=== PATIENT | female | born 1985 | race American Indian/Alaskan Native ===

== ENCOUNTER 2020-03-02 12:42 | Emergency (ER) | payer MEDICAID ==
--- NOTE | 2020-03-02 12:52 | Event Note ---
ED Screening Note ED Screening Note: 35 y/o female with PMH of constipation and bowel obstruction secondary to previous surgical history (colon resection and c section) c/o of no BM x 5 days and few episodes of nausea and vomiting. This initial assessment/diagnostic orders/clinical plan/treatment(s) is/are subject to change based on patients health status, clinical progression and re- assessment by fellow clinical providers in the ED. Further treatment and workup at subsequent clinical providers discretion. Patient/guardian urged not to elope from the ED as their condition may be serious if not clinically assessed and managed. Initial orders include:
--- NOTE | 2020-03-02 14:38 | XRay Report ---
Abdominal series with frontal chest, 3) INDICATION / CLINICAL INFORMATION: constipation abd pain. COMPARISON: None available. FINDINGS: TUBES / LINES: None. BOWEL GAS PATTERN: No significant abnormality. FREE AIR / EXTRALUMINAL GAS: None seen. Chest: No significant additional findings. IMPRESSION: 1. No significant abnormality. Signer Name: J Luis Larson MD Signed: 03/02/2020 2:34 PM Workstation Name: [id number]
[2020-03-02 15:04] LABS: Basophils # (Auto) 0.2 K/mm3 (0.0-0.1); Basophils % (Auto) 2.6 % (0.0-1.8); Eosinophils # (Auto) 0.3 K/mm3 (0.0-0.4); Eosinophils % (Auto) 4.8 % (0.0-4.3); Hematocrit 38.8 % (30.3-42.9); Hemoglobin 12.5 gm/dl (10.1-14.3); Lymphocytes # (Auto) 1.4 K/mm3 (1.2-5.4); Lymphocytes % (Auto) 21.2 % (13.4-35.0); Mean Corpuscular HGB Conc 32 % (30-34); Mean Corpuscular Volume 90 fl (79-97); Monocytes # (Auto) 0.3 K/mm3 (0.0-0.8); Platelet Count 217 K/mm3 (140-440); Red Cell Distribution Width 16.2 % (13.2-15.2)
[2020-03-02 15:06] LABS: Alanine Aminotransferase 16 units/L (7-56); BUN/Creatinine Ratio 10; Blood Urea Nitrogen 7 mg/dL (7-17); Calcium 9.1 mg/dL (8.4-10.2); Hemolysis Index 7
[2020-03-02] MEDS ORDERED: SODIUM CHLORIDE 0.9% 1000 ML 1,000 ML IV ONE ×2 (17:46→19:15)
[2020-03-02] MEDS ORDERED: ONDANSETRON 4 MG/2 ML INJ IV ONE (17:46)
--- NOTE | 2020-03-02 17:50 | Emergency Department Report ---
HPI - General Chief Complaint: Abdominal Pain Time Seen by Provider: 03/02/20 17:37 - HPI HPI: Room 3 The patient is a 35-year-old female present with a chief complaint of abdominal pain. The patient states for the past 3 days she has had a constant lower abdominal pain described as a pressure associated with nausea and vomiting. Patient states she has not had a bowel movement in 5 days when she normally has 1 daily. Patient denies history of fever, vaginal discharge dysuria or hematuria. ED Past Medical Hx - Past Medical History Previous Medical History?: Yes Hx Asthma: Yes Additional medical history: SVT - Surgical History Past Surgical History?: Yes Additional Surgical History: left ovary removed. hysterectomy. bowel obstruction (2019) - Family History Family history: no significant - Social History Smoking Status: Former Smoker (None since December) Substance Use Type: None (Denies illicit drug use) - Medications Home Medications: Home Medications Medication Instructions Recorded Confirmed Last Taken Type Docusate Sodium [Colace] 100 mg PO BID PRN #30 capsule 03/03/20 Unknown Rx HYDROcodone/APAP 5-325 [[place] 1 - 2 each PO Q6HR PRN #14 tablet 03/03/20 Unknown Rx 5/325] Lactulose [Cephulac] 20 gm PO QDAY PRN #90 ml 03/03/20 Unknown Rx ED Review of Systems ROS: Stated complaint: ABD PAIN Other details as noted in HPI Constitutional: denies: fever Eyes: denies: eye pain ENT: denies: throat pain Respiratory: no symptoms reported Cardiovascular: denies: chest pain Endocrine: no symptoms reported Gastrointestinal: abdominal pain, nausea, vomiting, constipation Genitourinary: denies: dysuria Neurological: denies: headache Physical Exam - Physical Exam Vital Signs: Vital Signs 03/02/20 12:47 Temperature 98.0 F Pulse Rate 114 H Respiratory 16 Rate Blood Pressure 128/77 O2 Sat by Pulse 99 Oximetry Physical Exam: GENERAL: The patient is well-developed well-nourished female lying on stretcher not appearing to be in acute distress. [] HEENT: Normocephalic. Atraumatic. Extraocular motions are intact. Patient has moist mucous membranes. NECK: Supple. Trachea midline CHEST/LUNGS: Clear to auscultation. There is no respiratory distress noted. HEART/CARDIOVASCULAR: Regular. There is no tachycardia. There is no gallop rub or murmur. ABDOMEN: Abdomen is soft, with tenderness to palpation of the lower abdomen greatest in the suprapubic region. Patient has normal bowel sounds. There is no abdominal distention. SKIN: There is no rash. There is no edema. There is no diaphoresis. NEURO: The patient is awake, alert, and oriented. The patient is cooperative. The patient has normal speech MUSCULOSKELETAL: There is left CVA tenderness. There is no evidence of acute injury. ED Course Vital Signs 03/02/20 12:47 Temperature 98.0 F Pulse Rate 114 H Respiratory 16 Rate Blood Pressure 128/77 O2 Sat by Pulse 99 Oximetry ED Medical Decision Making - Lab Data Result diagrams: 03/02/20 14:31 03/02/20 14:31 Laboratory Tests 03/02/20 03/02/20 03/02/20 14:31 14:31 18:40 WBC 6.4 RBC 4.30 Hgb 12.5 Hct 38.8 MCV 90 MCH 29 MCHC 32 RDW 16.2 H Plt Count 217 Lymph % (Auto) 21.2 [place] % (Auto) 5.0 Eos % (Auto) 4.8 H Baso % (Auto) 2.6 H Lymph # 1.4 [place] # 0.3 Eos # 0.3 Baso # 0.2 H Seg Neutrophils % 66.4 Seg Neutrophils # 4.3 Sodium 140 Potassium 4.0 Chloride 102.3 Carbon Dioxide 26 Anion Gap 16 BUN 7 Creatinine 0.7 Estimated GFR > 60 BUN/Creatinine Ratio 10 Glucose 97 Calcium 9.1 Total Bilirubin 0.30 AST 17 ALT 16 Alkaline Phosphatase 58 Total Protein 7.2 Albumin 4.0 Albumin/Globulin Ratio 1.3 Urine Color Yellow Urine Turbidity Clear Urine pH 7.0 Ur Specific [place] 1.015 Urine Protein <15 mg/dl Urine Glucose (UA) Neg Urine Ketones Neg Urine Blood Neg Urine Nitrite Neg Urine Bilirubin Neg Urine Urobilinogen < 2.0 Ur Leukocyte Esterase Neg Urine WBC (Auto) 1.0 Urine RBC (Auto) 1.0 U Epithel Cells (Auto) 1.0 Urine Mucus Few Urine HCG, Qual Negative - EKG Data -: EKG Interpreted by Mn EKG shows normal: sinus rhythm Rate: tachycardia (155 bpm) - EKG Data When compared to previous EKG there are: previous EKG unavailable Interpretation: nonspecific ST-T wave belem (T wave inversion lead III) - Radiology Data Radiology results: report reviewed (2 view abdominal x-ray, CT abdomen pelvis), image reviewed (2 view abdominal x-ray, CT abdomen pelvis) interpreted by me: 2 view abdominal [id number]-bsienjeghgh bowel gas pattern. No free air Findings [address] [address] XRay Report Signed Patient: LYLE HUBER MR#: [id number] : 1985 Acct:[id number] Age/Sex: 35 / F ADM Date: 03/02/20 Loc: ED Attending Dr: Ordering Physician: MARIE BENNETT Date of Service: 03/02/20 Procedure(s): XR abd series w cxr 1V Accession Number(s): [id number] cc: MARIE BENNETT Fluoro Time In Minutes: Abdominal series with frontal chest, 3) INDICATION / CLINICAL INFORMATION: constipation abd pain. COMPARISON: None available. FINDINGS: TUBES / LINES: None. BOWEL GAS PATTERN: No significant abnormality. FREE AIR / EXTRALUMINAL GAS: None seen. Chest: No significant additional findings. IMPRESSION: 1. No significant abnormality. Signer Name: J Luis Larson MD Signed: 03/02/2020 2:34 PM Workstation Name: [id number] Transcribed By: BC Dictated By: J Luis Larson MD Electronically Authenticated By: J Luis Larson MD Signed Date/Time: 03/02/201433 DD/ 1433 TD/TT: [address] [address] Cat Scan Report Signed Patient: LYLE HUBER MR#: [id number] : 1985 Acct:[id number] Age/Sex: 35 / F ADM Date: 03/02/20 Loc: ED Attending Dr: Ordering Physician: ESPERANZA FORMAN MD Date of Service: 03/02/20 Procedure(s): CT abdomen pelvis w con Accession Number(s): [id number] cc: ESPERANZA FORMAN MD CT abdomen pelvis w con INDICATION / CLINICAL INFORMATION: Left lower abdominal pain TECHNIQUE: Routine CT of the abdomen and pelvis with IV contrast All CT scans at this location are performed using CT dose reduction for ALARA by means of automated exposure control. COMPARISON: None available. FINDINGS: Abdomen and pelvis: There is a large cystic mass arising from the left ovary. The cystic portion measures about 13 x 8 x 4 cm there is a solid enhancing portion of the mass that measures approximately 2.5 cm in diameter. The right ovary also contains a mildly complex cyst measuring 5.4 cm in diameter. No definite uterus is appreciated The liver, spleen, pancreas adrenal glands and kidneys are unremarkable. The gallbladder is contracted. There is evidence of partial bowel resection. Urinary bladder is only partially fluid distended. Shotty inguinal nodes are present. There are several borderline enlarged nodes along the obturator and distal left external iliac jace chain although none appear to be pathologically enlarged. IMPRESSION: Complex cystic mass arising from the left ovary, as outlined above. The enhancing portion of this mass is suspicious for underlying ovarian neoplasm. There are several borderline enlarged nodes identified within the obturator and external iliac jace chain. Signer Name: J Luis Larson MD Signed: 03/02/2020 7:39 PM Workstation Name: [id number] Transcribed By: Dictated By: J Luis Larson MD Electronically Authenticated By: J Luis Larson MD Signed Date/Time: 03/02/201938 DD/ 34 TD/TT: - Medical Decision Making Imaging results discussed with the patient. Importance of prompt follow-up given concern for underlying malignancy was explained and patient verbalized understanding. - Differential Diagnosis Small bowel obstruction, constipation, UTI, pyelonephritis Critical care attestation.: If time is entered above; I have spent that time in minutes in the direct care of this critically ill patient, excluding procedure time. ED Disposition Clinical Impression: Mass of left ovary Disposition: - TO HOME OR SELFCARE Is pt being admited?: No Does the pt Need Aspirin: No Condition: Stable Instructions: Abdominal Pain (ED) Additional Instructions: Return to the emergency department should you develop worsening symptoms, inability to tolerate food or liquids, high fever or any other concerns Prescriptions: Lactulose [Cephulac] 20 gm PO QDAY PRN #90 ml PRN Reason: Constipation Docusate Sodium [Colace] 100 mg PO BID PRN #30 capsule PRN Reason: Constipation HYDROcodone/APAP 5-325 [[place] 5/325] 1 - 2 each PO Q6HR PRN #14 tablet PRN Reason: Pain Referrals: [facility] MD CARLITOS [Primary Care Provider] - 3-5 Days [facility] [Provider Group] - JESSICA (Please follow-up with a gy necologist at [facility] for further evaluation of your left ovarian cystic mass) Time of Disposition: 00:18
[2020-03-02 18:55] LABS: Bilirubin,Urine NEG (Negative); Blood,Urine NEG (Negative); Color,Urine Yellow (Yellow); Mucus,Urine FEW /HPF; Protein,Urine <15 mg/dL mg/dL (Negative); Urobilinogen,Urine < 2.0 mg/dL (<2.0)
[2020-03-02 18:59] LABS: HCG Qualitative,Urine Negative (Negative)
--- NOTE | 2020-03-02 19:43 | Cat Scan Report ---
CT abdomen pelvis w con INDICATION / CLINICAL INFORMATION: Left lower abdominal pain TECHNIQUE: Routine CT of the abdomen and pelvis with IV contrast All CT scans at this location are performed usi ng CT dose reduction for ALARA by means of automated exposure control. COMPARISON: None available. FINDINGS: Abdomen and pelvis: There is a large cystic mass arising from the left ovary. The cystic portion bruce ures about 13 x 8 x 4 cm there is a solid enhancing portion of the mass that measures approximately 2 .5 cm in diameter. The right ovary also contains a mildly complex cyst measuring 5.4 cm in diameter. No definite uterus is appreciated The liver, spleen, pancreas adrenal glands and kidneys are unremarkable. The gallbladder is contracte d. There is evidence of partial bowel resection. Urinary bladder is only partially fluid distended. S hotty inguinal nodes are present. There are several borderline enlarged nodes along the obturator and distal left external iliac jace chain although none appear to be pathologically enlarged. IMPRESSION: Complex cystic mass arising from the left ovary, as outlined above. The enhancing portion of this mas s is suspicious for underlying ovarian neoplasm. There are several borderline enlarged nodes identifi ed within the obturator and external iliac jace chain. Signer Name: J Luis Larson MD Signed: 03/02/2020 7:39 PM Workstation Name: [id number]
[2020-03-02] MEDS ORDERED: KETOROLAC 30 MG/1 ML INJ IV ONE (20:24)
[2020-03-02] MEDS ORDERED: LACTULOSE 20 GM/30 ML ORAL LIQD PO ONE (21:48)
[2020-03-02] MEDS ORDERED: diphenhydrAMINE 50 MG/ML VIAL IV ONE (21:48)
--- NOTE | 2020-03-02 23:44 | Ultrasound Report ---
US pelvis duplex doppler comp INDICATION / CLINICAL INFORMATION: Lower abdominal pain. Abnormal CT. COMPARISON: CT earlier the same day FINDINGS: There has been prior hysterectomy and right oophorectomy. There is a very large cystic lesion appears to arise from the left ovary. This measures approximately 12.3 x 6.2 x 6.6 cm. There are a few internal septations within this. No abnormal flow is seen withi n this. No free fluid. IMPRESSION: 1. Large left ovarian cystic lesion, measurements as above. There are a few internal echoes. No vascu larity is seen. Gynecologic follow-up is recommended, given the size of this lesion. 2. Prior hysterectomy and right oophorectomy. Signer Name: Jorge L Castle MD Signed: 03/02/2020 11:40 PM Workstation Name: [id number]
[2020-03-03 01:35] VITALS: BP 123/78
== END 2020-03-03 02:08 | disposition home or self-care (01) ==
LOC: ED 12:42
DX: N83.9 Noninflammatory disorder of ovary, fallopian tube and broad ligament, unspecified (principal); R11.2 Nausea with vomiting, unspecified; J45.909 Unspecified asthma, uncomplicated; Z87.891 Personal history of nicotine dependence; Z98.890 Other specified postprocedural states; Z90.710 Acquired absence of both cervix and uterus; Z79.899 Other long term (current) drug therapy; Z88.0 Allergy status to penicillin
CPT/HCPCS: 36415; 74022; 74177; 80053; 81001; 81025; 85025; 93975; 96361; 96374; 96375; 99285; J1200; J1885; J2405; J7030; Q9967; 93005

== ENCOUNTER 2020-11-09 23:44 | Emergency (ER) | payer MEDICAID ==
--- NOTE | 2020-11-10 01:42 | Event Note ---
ED Screening Note Date of service: 11/10/20 Time: 01:41 ED Screening Note: Patient complains of sudden onset of left lower abdominal pain x 5 hours ago History of multiple abdominal surgeries and bowel obstructions Patient has had a hysterectomy, still has left ovary CT 02/23 showed possible neoplasm + Nausea and vomiting This initial assessment/diagnostic orders/clinical plan/treatment(s) is/are subject to change based on patients health status, clinical progression and re- assessment by fellow clinical providers in the ED. Further treatment and workup at subsequent clinical providers discretion. Patient/guardian urged not to elope from the ED as their condition may be serious if not clinically assessed and managed. Initial orders include: Labs CT
[2020-11-10 01:54] LABS: Basophils # (Auto) 0.1 K/mm3 (0.0-0.1); Basophils % (Auto) 1.5 % (0.0-1.8); Eosinophils # (Auto) 0.1 K/mm3 (0.0-0.4); Eosinophils % (Auto) 1.1 % (0.0-4.3); Hematocrit 33.6 % (30.3-42.9); Hemoglobin 10.7 gm/dl (10.1-14.3); Lymphocytes # (Auto) 1.8 K/mm3 (1.2-5.4); Lymphocytes % (Auto) 24.8 % (13.4-35.0); Mean Corpuscular HGB Conc 32 % (30-34); Mean Corpuscular Volume 81 fl (79-97); Monocytes # (Auto) 0.4 K/mm3 (0.0-0.8); Monocytes % (Auto) 5.8 % (0.0-7.3); Platelet Count 371 K/mm3 (140-440); Red Blood Count 4.14 M/mm3 (3.65-5.03); Red Cell Distribution Width 17.6 % (13.2-15.2)
[2020-11-10 02:12] LABS: Alanine Aminotransferase 11 units/L (7-56); Albumin 4.2 g/dL (3.9-5); Blood Urea Nitrogen 8 mg/dL (7-17); Calcium 8.9 mg/dL (8.4-10.2); Hemolysis Index 1
[2020-11-10 02:17] LABS: BUN/Creatinine Ratio 11
[2020-11-10] MEDS ORDERED: SODIUM CHLORIDE 0.9% 1000 ML 1,000 ML IV ONE (02:52)
[2020-11-10] MEDS ORDERED: HYDROmorphone 1 MG/1 ML INJ IV ONE ×2 (02:52→04:28)
[2020-11-10] MEDS ORDERED: ONDANSETRON 4 MG/2 ML INJ IV ONE (02:52)
--- NOTE | 2020-11-10 03:02 | Emergency Department Report ---
ED Abdominal Pain HPI - General Chief Complaint: Abdominal Pain Stated Complaint: ABD PAIN PUI?: No Time Seen by Provider: 11/10/20 01:40 Source: patient Mode of arrival: Stretcher Limitations: No Limitations - History of Present Illness Initial Comments: CC: Lower abdominal pain HPI: THis is a 32 yo female with hx of SVT, anemia, bronchitis, hystectomy, ascites, bowel obstruction and ovarian mass who presents with severe 10/10 LLQ pain. Sharp pain which began yesterday. More severe today. She is followed at [facility]. She has received paracentesis at least 5 times. MD Complaint: abdominal pain -: Gradual, days(s) (1) Location: LLQ Radiation: none Severity: severe Severity scale (0 -10): 10 Quality: sharp Consistency: constant Improves With: nothing Worsens With: movement, other (Palpation) Context: other (Complicated history including ascites, bowel obstruction, ovarian mass) Associated Symptoms: denies other symptoms - Related Data Previous Rx's Medication Instructions Recorded Last Taken Type Docusate Sodium [Colace] 100 mg PO BID PRN #30 capsule 03/03/20 Unknown Rx HYDROcodone/APAP 5-325 [[place] 1 - 2 each PO Q6HR PRN #14 tablet 03/03/20 Unknown Rx 5/325] Lactulose [Cephulac] 20 gm PO QDAY PRN #90 ml 03/03/20 Unknown Rx HYDROcodone/APAP 5-325 [[place] 1 each PO Q6HR PRN #15 tablet 11/10/20 Unknown Rx 5/325] Ibuprofen [Motrin 400 MG tab] 400 mg PO QID 4 Days #16 tablet 11/10/20 Unknown Rx Allergies Allergy/AdvReac Type Severity Reaction Status Date / Time Penicillins Allergy Hives Verified 03/02/20 12:47 ED Review of Systems ROS: Stated complaint: ABD PAIN Other details as noted in HPI Comment: All other systems reviewed and negative Constitutional: denies: fever, malaise Respiratory: denies: cough, shortness of breath Cardiovascular: denies: chest pain Gastrointestinal: abdominal pain ED Past Medical Hx - Past Medical History Previous Medical History?: Yes Hx Asthma: Yes Additional medical history: SVT, anemia, left ovarian mass - Surgical History Past Surgical History?: Yes Additional Surgical History: right ovary removed. hysterectomy. bowel obstruction (2019) - Family History Family history: cancer, diabetes - Social History Smoking Status: Never Smoker Substance Use Type: None - Medications Home Medications: Home Medications Medication Instructions Recorded Confirmed Last Taken Type Docusate Sodium [Colace] 100 mg PO BID PRN #30 capsule 03/03/20 Unknown Rx HYDROcodone/APAP 5-325 [[place] 1 - 2 each PO Q6HR PRN #14 tablet 03/03/20 Unknown Rx 5/325] Lactulose [Cephulac] 20 gm PO QDAY PRN #90 ml 03/03/20 Unknown Rx HYDROcodone/APAP 5-325 [[place] 1 each PO Q6HR PRN #15 tablet 11/10/20 Unknown Rx 5/325] Ibuprofen [Motrin 400 MG tab] 400 mg PO QID 4 Days #16 tablet 11/10/20 Unknown Rx ED Physical Exam - General Limitations: No Limitations General appearance: alert, in no apparent distress, anxious, other (Nontoxic, tearful, in obvious pain) - Head Head exam: Present: atraumatic, normocephalic - Eye Eye exam: Present: normal appearance - ENT ENT exam: Present: mucous membranes moist - Neck Neck exam: Present: normal inspection, full ROM - Respiratory Respiratory exam: Present: normal lung sounds bilaterally. Absent: respiratory distress, wheezes, rales, rhonchi, stridor - Cardiovascular Cardiovascular Exam: Present: regular rate, normal rhythm, normal heart sounds. Absent: systolic murmur, diastolic murmur, rubs, gallop - GI/Abdominal GI/Abdominal exam: Present: soft, tenderness, guarding, normal bowel sounds. Absent: distended, rebound - Extremities Exam Extremities exam: Present: normal inspection - Neurological Exam Neurological exam: Present: alert, oriented X3 - Psychiatric Psychiatric exam: Present: normal affect, anxious - Skin Skin exam: Present: warm, dry, intact, normal color. Absent: rash ED Course Vital Signs 11/10/20 01:25 Temperature 98.6 F Pulse Rate 98 H Respiratory 17 Rate Blood Pressure 130/80 O2 Sat by Pulse 99 Oximetry ED Medical Decision Making - Lab Data Result diagrams: 11/10/20 01:33 11/10/20 01:33 - Radiology Data Radiology results: report reviewed, image reviewed CT abdomen pelvis w con INDICATION: acute LLQ pain. TECHNIQUE: All CT scans at this location are performed using the following dose modulation technique: Automated exposure control. CONTRAST: Omnipaque 300, 100 cc IV injection. COMPARISON: CT abdomen and pelvis 03/02/2020. CT ABDOMEN: Evaluation the parenchymal organs demonstrates benign-appearing cysts at the hepatic dome. The remaining parenchymal organs are unremarkable. Negative for abdominal mass, fluid or inflammation. The bowel is not obstructed or thickened. Postsurgical change is seen at small bowel activity midabdomen. CT PELVIS: The left ovary contains multiple cysts with the largest measuring 3.5 cm. The appearance is significantly improved from the previous exam. Status post previous hysterectomy. A small amount of pelvic free fluid is noted. IMPRESSION: 1. Interval improvement in the appearance of the left ovary. Mul tiple cysts remain. 2. Small amount of pelvic free fluid. PELVIC ULTRASOUND HISTORY: Pelvic mass. COMPARISON: CT abdomen and pelvis performed earlier the same day. FINDINGS: Imaging was performed by transabdominally and endovaginally. Both the right and left adnexal were evaluated. Negative for mass or fluid collection. No ovaries identified. IMPRESSION: 1. Previous hysterectomy. 2. Ovaries not visualized. - Medical Decision Making Clinical impression: Ruptured ovarian cyst patient has multiple cystic lesion on ovary with small pelvic free fluid. Initially concern for ovarian torsion however patient's pain greatly subsided after pain medication. Patient will be discharged follow-up with her primary physicians at [facility]. She also was provided referral to [facility] on-call. Patient was provided prescription for ibuprofen and [place]. CT abdomen pelvis was indicated due to severe pain. Cystic lesions seen on ovary otherwise no acute inflammatory or obstructive process. Pelvic ultrasound did not reveal adnexal mass. Critical care attestation.: If time is entered above; I have spent that time in minutes in the direct care of this critically ill patient, excluding procedure time. ED Disposition Clinical Impression: Ruptured cyst of left ovary, Acute abdominal pain in left lower quadrant Disposition: DC-01 TO HOME OR SELFCARE Is pt being admited?: No Does the pt Need Aspirin: No Condition: Stable Instructions: Abdominal Pain (ED), Ovarian Cyst, [id number], Pelvic Mass, Female Prescriptions: Ibuprofen [Motrin 400 MG tab] 400 mg PO QID 4 Days #16 tablet HYDROcodone/APAP 5-325 [[place] 5/325] 1 each PO Q6HR PRN #15 tablet PRN Reason: Pain Referrals: [facility] [Provider Group] - 3-5 Days
[2020-11-10 03:20] LABS: Bilirubin,Urine NEG (Negative); Blood,Urine NEG (Negative); Color,Urine Yellow (Yellow); Mucus,Urine FEW /HPF; Protein,Urine <15 mg/dL mg/dL (Negative); WBC,Urine < 1.0 /HPF (0.0-6.0)
--- NOTE | 2020-11-10 03:59 | Cat Scan Report ---
CT abdomen pelvis w con INDICATION: acute LLQ pain. TECHNIQUE: All CT scans at this location are performed using the following dose modulation technique: Automated exposure control. CONTRAST: Omnipaque 300, 100 cc IV injection. COMPARISON: CT abdomen and pelvis 03/02/2020. CT ABDOMEN: Evaluation the parenchymal organs demonstrates benign-appearing cysts at the hepatic dome . The remaining parenchymal organs are unremarkable. Negative for abdominal mass, fluid or inflammati on. The bowel is not obstructed or thickened. Postsurgical change is seen at small bowel activity mid abdomen. CT PELVIS: The left ovary contains multiple cysts with the largest measuring 3.5 cm. The appearance i s significantly improved from the previous exam. Status post previous hysterectomy. A small amount of pelvic free fluid is noted. IMPRESSION: 1. Interval improvement in the appearance of the left ovary. Multiple cysts remain. 2. Small amount of pelvic free fluid. Signer Name: Charlie Martínez MD Signed: 11/10/2020 3:54 AM Workstation Name: [id number]
--- NOTE | 2020-11-10 04:50 | Ultrasound Report ---
PELVIC ULTRASOUND HISTORY: Pelvic mass. COMPARISON: CT abdomen and pelvis performed earlier the same day. FINDINGS: Imaging was performed by transabdominally and endovaginally. Both the right and left adnexa l were evaluated. Negative for mass or fluid collection. No ovaries identified. IMPRESSION: 1. Previous hysterectomy. 2. Ovaries not visualized. Signer Name: Charlie Martínez MD Signed: 11/10/2020 4:46 AM Workstation Name: [id number]
[2020-11-10] MEDS ORDERED: KETOROLAC 30 MG/1 ML INJ IV ONE (04:51)
[2020-11-10 06:05] VITALS: BP 127/68
== END 2020-11-10 05:45 | disposition home or self-care (01) ==
LOC: ED 23:44
DX: N83.292 Other ovarian cyst, left side (principal); R10.32 Left lower quadrant pain; J45.909 Unspecified asthma, uncomplicated; Z98.890 Other specified postprocedural states; Z79.1 Long term (current) use of non-steroidal anti-inflammatories (NSAID); Z79.899 Other long term (current) drug therapy; Z88.8 Allergy status to other drugs, medicaments and biological substances
CPT/HCPCS: 36415; 74177; 76856; 80053; 81001; 83690; 85025; 93975; 96361; 96374; 96375; 96376; 99284; J1170; J1885; J2405; J7030; Q9967

== ENCOUNTER 2021-04-02 22:40 | Inpatient (IN) | payer MEDICAID ==
[2021-04-02] MEDS ORDERED: ASPIRIN 325 MG TAB PO ONE (22:48)
[2021-04-02] MEDS ORDERED: MORPHINE 2 MG/1 ML INJ IV ONE (23:10)
[2021-04-02] MEDS ORDERED: dilTIAZem 25 MG/5 ML INJ IV ONE (23:10)
[2021-04-02] MEDS ORDERED: SODIUM CHLORIDE 0.9% 1000 ML 1,000 ML IV ONE (23:10)
[2021-04-02] MEDS ORDERED: ONDANSETRON 4 MG/2 ML INJ IV ONE (23:10)
--- NOTE | 2021-04-02 23:11 | Emergency Department Report ---
ED Chest Pain HPI - General Chief Complaint: Chest Pain Stated Complaint: ABD PAIN/CHEST PAIN/EMESIS PUI?: No Time Seen by Provider: 04/02/21 22:55 Source: patient Mode of arrival: Ambulatory Limitations: No Limitations - History of Present Illness Initial Comments: Patient is a 36-year-old female who presents emergency room with complaints of substernal chest pain. Patient states the chest pain has been radiating to her arms. Patient states that her chest pain started 2 days ago. Patient also complains of left lower quadrant abdominal pain. Patient states her abdominal pain started 3 days ago. Patient dates her abdominal pain is worsening. Patient states her abdominal pain is a 10 out of 10. Patient also complains of nausea. Patient denies vomiting. Patient denies fever and chills. Patient states her abdominal pain is better with rest and worse with palpation and movement. Patient denies recent travel. Patient denies recent international travel. Patient denies exposure to the novel coronavirus. Patient denies sick contacts. Patient denies fever and chills. Patient denies cough. Patient denies diarrhea. Patient denies coming in contact with anybody with symptoms of the novel coronavirus. MD Complaint: chest pain -: Sudden Onset: during rest Pain Location: substernal Pain Radiation: RUE, LUE Severity: severe Severity scale (0 -10): 10 Quality: sharp Consistency: constant Improves With: rest Worsens With: exertion, movement re: nausea, diaphoresis, dyspnea. denies: vomting, sense of impending doom Other Symptoms: palpitations. denies: cough, fever, syncope, rash, acid taste in mouth, leg swelling, burping Treatments Prior to Arrival: none Aspirin use within the Past 7 Days: (0) No - Related Data On Oral Contraceptives: No Previous Rx's Medication Instructions Recorded Last Taken Type Docusate Sodium [Colace] 100 mg PO BID PRN #30 capsule 03/03/20 Unknown Rx HYDROcodone/APAP 5-325 [[place] 1 - 2 each PO Q6HR PRN #14 tablet 03/03/20 Unknown Rx 5/325] Lactulose [Cephulac] 20 gm PO QDAY PRN #90 ml 03/03/20 Unknown Rx HYDROcodone/APAP 5-325 [[place] 1 each PO Q6HR PRN #15 tablet 11/10/20 Unknown Rx 5/325] Ibuprofen [Motrin 400 MG tab] 400 mg PO QID 4 Days #16 tablet 11/10/20 Unknown Rx Allergies Allergy/AdvReac Type Severity Reaction Status Date / Time Penicillins Allergy Hives Verified 03/02/20 12:47 Heart Score - HEART Score History: Moderately suspicious EKG: Non-specific Age: < 45 Risk factors: 1-2 risk factors Troponin: < normal limit HEART Score: 3 - EKG Read Time Time EKG Completed: 22:48 EKG Read Time: 22:52 ED Review of Systems ROS: Stated complaint: ABD PAIN/CHEST PAIN/EMESIS Other details as noted in HPI Constitutional: denies: chills, fever Eyes: denies: eye pain, eye discharge, vision change ENT: denies: ear pain, throat pain Respiratory: shortness of breath. denies: cough, wheezing Cardiovascular: chest pain. denies: palpitations Endocrine: no symptoms reported Gastrointestinal: abdominal pain. denies: nausea, diarrhea Genitourinary: denies: urgency, dysuria, discharge Musculoskeletal: denies: back pain, joint swelling, arthralgia Skin: denies: rash, lesions Neurological: denies: headache, weakness, paresthesias Psychiatric: denies: anxiety, depression Hematological/Lymphatic: denies: easy bleeding, easy bruising ED Past Medical Hx - Past Medical History Previous Medical History?: Yes Hx Asthma: Yes Additional medical history: SVT, anemia, left ovarian mass - Surgical History Past Surgical History?: Yes Additional Surgical History: right ovary removed. hysterectomy. bowel obstruction (2019) - Social History Smoking Status: Never Smoker Substance Use Type: None - Medications Home Medications: Home Medications Medication Instructions Recorded Confirmed Last Taken Type Docusate Sodium [Colace] 100 mg PO BID PRN #30 capsule 03/03/20 Unknown Rx HYDROcodone/APAP 5-325 [[place] 1 - 2 each PO Q6HR PRN #14 tablet 03/03/20 Unknown Rx 5/325] Lactulose [Cephulac] 20 gm PO QDAY PRN #90 ml 03/03/20 Unknown Rx HYDROcodone/APAP 5-325 [[place] 1 each PO Q6HR PRN #15 tablet 11/10/20 Unknown Rx 5/325] Ibuprofen [Motrin 400 MG tab] 400 mg PO QID 4 Days #16 tablet 11/10/20 Unknown Rx ED Physical Exam - General Limitations: No Limitations General appearance: alert, in no apparent distress - Head Head exam: Present: atraumatic, normocephalic - Eye Eye exam: Present: normal appearance - ENT ENT exam: Present: mucous membranes moist - Neck Neck exam: Present: normal inspection - Respiratory Respiratory exam: Present: normal lung sounds bilaterally. Absent: respiratory distress - Cardiovascular Cardiovascular Exam: Present: regular rate, normal rhythm. Absent: systolic murmur, diastolic murmur, rubs, gallop - GI/Abdominal GI/Abdominal exam: Present: soft, tenderness (Left lower quadrant tenderness to palpation.), normal bowel sounds - Extremities Exam Extremities exam: Present: normal inspection - Back Exam Back exam: Present: normal inspection - Neurological Exam Neurological exam: Present: alert, oriented X3 - Psychiatric Psychiatric exam: Present: normal affect, normal mood - Skin Skin exam: Present: warm, dry, intact, normal color. Absent: rash ED Course Vital Signs 04/02/21 04/02/21 22:45 23:24 Temperature 98.2 F Pulse Rate 162 H 169 H Respiratory 19 Rate Blood Pressure 126/84 [Left] O2 Sat by Pulse 100 Oximetry - Reevaluation(s) Reevaluation #1: Initial valuation done. Patient found to be in a tachycardic rhythm at 160-170. 04/02/21 23:09 Reevaluation #2: Patient received Cardizem and she immediately converted. Patient's heart rate dropped to 105. Patient states her chest pain improved. Patient states her shortness of breath improved. Patient's blood pressure is stable. 04/02/21 23:40 Reevaluation #3: Patient's heart rates still below 105. Patient showing a sinus tach on the monitor. Patient blood pressure stable. Patient is complaining of increased abdominal pain. Patient was given 1 mg Dilaudid. Patient still on IV fluids. 04/03/21 01:01 Reevaluation #4: I discussed all results with patient. I discussed plan of care with patient. Patient agrees with plan of care and admission. Patient to be admitted to the hospitalist service. 04/03/21 01:44 - Consultations Consultation #1: Hospitalist consulted for admission. Hospitalist to admit patient. 04/03/21 01:44 ED Medical Decision Making - Lab Data Result diagrams: 04/02/21 22:59 04/02/21 22:59 - EKG Data -: EKG Interpreted by Me EKG shows normal: sinus rhythm, axis, intervals, QRS complexes, ST-T waves Rate: tachycardia - Radiology Data Radiology results: report reviewed, image reviewed interpreted by me: Chest x-ray: No pneumonia, no pneumothorax, no foreign body, no osseous findings, no acute findings CHEST 1 VIEW 04/02/2021 10:32 PM INDICATION / CLINICAL INFORMATION: Retrosternal chest pain radiating to right arm for 2 days. Abdominal pain with nausea. COMPARISON: None available. FINDINGS: SUPPORT DEVICES: None. HEART / MEDIASTINUM: No significant abnormality. LUNGS / PLEURA: No significant pulmonary abnormality. No significant pleural effusion. No pneumothorax. ADDITIONAL FINDINGS: No significant additional findings. IMPRESSION: 1. No acute abnormality of the chest. CT ABDOMEN AND PELVIS WITH CONTRAST INDICATION / CLINICAL INFORMATION: Unspecified abdominal pain. TECHNIQUE: Axial CT images were obtained through the abdomen and pelvis after 100 cc Omnipaque [address] scans at this location are performed using CT dose reduction for DyMyndRA by means of automated exposure control. COMPARISON: CT abdomen and pelvis with contrast from 11/10/2020 FINDINGS: LOWER CHEST: No significant abnormality. LIVER: Unchanged hepatic dome cyst measuring 1.4 cm. No other significant abnormality. GALLBLADDER: No significant abnormality. BILE DUCTS: No significant abnormality. PANCREAS: No significant abnormality. SPLEEN: No significant abnormality. ADRENALS: No significant abnormality. RIGHT KIDNEY / URETER: No significant abnormality. LEFT KIDNEY / URETER: No significant abnormality. STOMACH / SMALL BOWEL: No significant abnormality. COLON: No significant abnormality. APPENDIX: No significant abnormality. PERITONEUM: No free fluid. No free air. No fluid collection. LYMPH NODES: No significant adenopathy. AORTA / ARTERIES: No significant abnormality. IVC / VEINS: No significant abnormality. URINARY BLADDER: No significant abnormality. REPRODUCTIVE ORGANS: Prior hysterectomy. Multiple left ovarian cysts are again seen measuring up to 4.2 cm, previously 3.5 cm. No other significant abnormality. ADDITIONAL FINDINGS: None. SKELETAL SYSTEM: No significant abnormality. IMPRESSION: 1. No acute findings. 2. Left ovarian cysts as above. - Medical Decision Making Patient is a 36-year-old female that presents emergency room with complaints of chest pain shortness of breath and abdominal pain. Patient abdominal pain left lower quadrant. Patient also complains of palpitations. Patient found to be in SVT. Patient was given Cardizem and immediately converted. Patient was then placed on a Cardizem drip at a low dose in order to stabilize heart rate. Patient stated her chest pain shortness of breath improved with the Cardizem. Patient given morphine for her chest pain and her abdominal pain. Patient had a chest x-ray which was negative for acute findings. Patient's labs were essentially unremarkable. Patient had a repeat EKG after converting. Patient's EKG shows a sinus tach. No ST segment changes. I personally reviewed the EKG and chest x-ray. Patient had a CT scan of the abdomen which was negative for acute findings. Critical care time documented due to the multiple reassessments, prolonged time at the bedside, interpretation of diagnostics and labs. - Differential Diagnosis Chest pain, SVT, shortness of breath, ACS, abdominal pain, diverticulitis Critical Care Time: Yes Critical care time in (mins) excluding proc time.: 35 Critical care attestation.: If time is entered above; I have spent that time in minutes in the direct care of this critically ill patient, excluding procedure time. Critical Care Time: 35 minutes ED Disposition Clinical Impression: Shortness of breath, SVT (supraventricular tachycardia), Left ovarian cyst Chest pain Qualifiers: Chest pain type: unspecified Qualified Code(s): R07.9 - Chest pain, unspecified Abdominal pain Qualifiers: Abdominal location: left lower quadrant Qualified Code(s): R10.32 - Left lower quadrant pain Disposition: OP ADMIT IP TO THIS HOSP Is pt being admited?: Yes Does the pt Need Aspirin: No Condition: Critical Time of Disposition: 01:29
--- NOTE | 2021-04-02 23:39 | XRay Report ---
CHEST 1 VIEW 04/02/2021 10:32 PM INDICATION / CLINICAL INFORMATION: Retrosternal chest pain radiating to right arm for 2 days. Abdominal pain with nausea. COMPARISON: None available. FINDINGS: SUPPORT DEVICES: None. HEART / MEDIASTINUM: No significant abnormality. LUNGS / PLEURA: No significant pulmonary abnormality. No significant pleural effusion. No pneumothora x. ADDITIONAL FINDINGS: No significant additional findings. IMPRESSION: 1. No acute abnormality of the chest. Signer Name: Rj Lezama MD Signed: 04/02/2021 11:34 PM Workstation Name: [id number]
[2021-04-02 23:45] LABS: Alanine Aminotransferase 20 units/L (7-56); Albumin 4.4 g/dL (3.9-5); BUN/Creatinine Ratio 13; Blood Urea Nitrogen 8 mg/dL (7-17); Calcium 9.2 mg/dL (8.4-10.2); Hemolysis Index 7
[2021-04-02] MEDS ORDERED: dilTIAZem/D5W 100 MG/100 ML BAG IV SCH (23:45)
[2021-04-02 23:47] LABS: Basophils # (Auto) 0.1 K/mm3 (0.0-0.1); Eosinophils # (Auto) 0.2 K/mm3 (0.0-0.4); Eosinophils % (Auto) 2.6 % (0.0-4.3); Hematocrit 34.7 % (30.3-42.9); Lymphocytes # (Auto) 3.6 K/mm3 (1.2-5.4); Lymphocytes % (Auto) 38.4 % (13.4-35.0); Mean Corpuscular HGB Conc 32 % (30-34); Mean Corpuscular Volume 82 fl (79-97); Monocytes # (Auto) 0.8 K/mm3 (0.0-0.8); Platelet Count 344 K/mm3 (140-440); Red Blood Count 4.25 M/mm3 (3.65-5.03); Red Cell Distribution Width 19.4 % (13.2-15.2)
[2021-04-02 23:48] LABS: Basophils % (Auto) 1.5 % (0.0-1.8)
[2021-04-03] MEDS ORDERED: HYDROmorphone 1 MG/1 ML INJ IV ONE (01:16)
--- NOTE | 2021-04-03 01:26 | Cat Scan Report ---
CT ABDOMEN AND PELVIS WITH CONTRAST INDICATION / CLINICAL INFORMATION: Unspecified abdominal pain. TECHNIQUE: Axial CT images were obtained through the abdomen and pelvis after 100 cc Omnipaque [address] scans at this location are performed using CT dose reduction for ALARA by means of automated exposure control. COMPARISON: CT abdomen and pelvis with contrast from 11/10/2020 FINDINGS: LOWER CHEST: No significant abnormality. LIVER: Unchanged hepatic dome cyst measuring 1.4 cm. No other significant abnormality. GALLBLADDER: No significant abnormality. BILE DUCTS: No significant abnormality. PANCREAS: No significant abnormality. SPLEEN: No significant abnormality. ADRENALS: No significant abnormality. RIGHT KIDNEY / URETER: No significant abnormality. LEFT KIDNEY / URETER: No significant abnormality. STOMACH / SMALL BOWEL: No significant abnormality. COLON: No significant abnormality. APPENDIX: No significant abnormality. PERITONEUM: No free fluid. No free air. No fluid collection. LYMPH NODES: No significant adenopathy. AORTA / ARTERIES: No significant abnormality. IVC / VEINS: No significant abnormality. URINARY BLADDER: No significant abnormality. REPRODUCTIVE ORGANS: Prior hysterectomy. Multiple left ovarian cysts are again seen measuring up to 4 .2 cm, previously 3.5 cm. No other significant abnormality. ADDITIONAL FINDINGS: None. SKELETAL SYSTEM: No significant abnormality. IMPRESSION: 1. No acute findings. 2. Left ovarian cysts as above. Signer Name: Rj Lezama MD Signed: 04/03/2021 1:22 AM Workstation Name: [id number]
[2021-04-03] MEDS ORDERED: NITROGLYCERIN 0.4 MG TAB SUBL SL PRN (02:00)
[2021-04-03] MEDS ORDERED: SODIUM CHLORIDE 0.9% 1000 ML 1,000 ML IV SCH (02:00)
[2021-04-03] MEDS ORDERED: ACETAMINOPHEN 325 MG TAB PO PRN (02:00)
[2021-04-03] MEDS ORDERED: MORPHINE 2 MG/1 ML INJ IV PRN (02:00)
[2021-04-03] MEDS ORDERED: traMADol 50 MG TAB PO PRN (02:00)
[2021-04-03] MEDS ORDERED: DOCUSATE SODIUM 100 MG CAP PO PRN (02:02)
[2021-04-03] MEDS ORDERED: LACTULOSE 20 GM/30 ML ORAL LIQD PO PRN (02:02)
--- NOTE | 2021-04-03 02:07 | History and Physical Report ---
History of Present Illness Date of examination: 04/03/21 Date of admission: 04/03/21 01:30 Chief complaint: Chest pain abdominal pain History of present illness: 36-year-old female with past medical history of asthma, SVT, anemia, left ovarian mass was brought to the emergency room because of substernal chest pain which is sharp, constant 10/10 radiating to the both arms for 2 days . Patient also complains of left lower quadrant abdominal pain. Patient states her abdominal pain started 3 days ago. Patient dates her abdominal pain is worsening. Patient states her abdominal pain is a 10 out of 10. Patient also complains of nausea. Patient denies vomiting. Patient denies fever and chills. Patient states her abdominal pain is better with rest and worse with palpation and movement. In the emergency room patient is found to have SVT subsequently patient was put on Cardizem drip. Past History Past Medical History: anemia, other (Asthma SVT left ovarian mass) Medications and Allergies Allergies Allergy/AdvReac Type Severity Reaction Status Date / Time Penicillins Allergy Hives Verified 03/02/20 12:47 Home Medications Medication Instructions Recorded Confirmed Last Taken Type Docusate Sodium [Colace] 100 mg PO BID PRN #30 capsule 03/03/20 Unknown Rx HYDROcodone/APAP 5-325 [[place] 1 - 2 each PO Q6HR PRN #14 tablet 03/03/20 Unknown Rx 5/325] Lactulose [Cephulac] 20 gm PO QDAY PRN #90 ml 03/03/20 Unknown Rx HYDROcodone/APAP 5-325 [[place] 1 each PO Q6HR PRN #15 tablet 11/10/20 Unknown Rx 5/325] Ibuprofen [Motrin 400 MG tab] 400 mg PO QID 4 Days #16 tablet 11/10/20 Unknown Rx Active Meds: Active Medications Diltiazem HCl (Cardizem/D5w 100mg/100ml) 100 mg in 100 mls @ 5 mls/hr IV TITR JUAN PABLO; Protocol Last Admin: 04/02/21 23:24 Dose: 5 mg/hr, 5 mls/hr Documented by: Review of Systems Cardiovascular: chest pain, shortness of breath Respiratory: shortness of breath Gastrointestinal: nausea Exam - Constitutional Vitals: Temp Pulse Resp BP Pulse Ox 98.2 F 169 H 19 126/84 100 04/02/21 22:45 04/02/21 23:24 04/02/21 22:45 04/02/21 22:45 04/02/21 22:45 General appearance: Present: no acute distress, well-nourished - EENT Eyes: Present: PERRL ENT: hearing intact, clear oral mucosa - Neck Neck: Present: supple, normal ROM - Respiratory Respiratory effort: normal Respiratory: bilateral: CTA - Cardiovascular Heart Sounds: Present: S1 & S2. Absent: rub, click - Extremities Extremities: pulses symmetrical, No edema Peripheral Pulses: within normal limits - Abdominal General gastrointestinal: Present: soft, non-tender, non-distended, normal bowel sounds Female genitourinary: Present: normal - Integumentary Integumentary: Present: clear, warm, dry - Musculoskeletal Musculoskeletal: gait normal, strength equal bilaterally - Psychiatric Psychiatric: appropriate mood/affect, intact judgment & insight - Neurologic Neurologic: CNII-XII intact, moves all extremities HEART Score - HEART Score EKG: Non-specific Age: < 45 Risk factors: 1-2 risk factors Troponin: Troponin T < 0.010 ng/mL (0.00-0.029) 04/02/21 22:59 Troponin: < normal limit Results - Labs CBC & Chem 7: 04/02/21 22:59 04/02/21 22:59 Labs: Laboratory Last Values WBC 9.4 K/mm3 (4.5-11.0) 04/02/21 22:59 RBC 4.25 M/mm3 (3.65-5.03) 04/02/21 22:59 Hgb 11.0 gm/dl (10.1-14.3) 04/02/21 22:59 Hct 34.7 % (30.3-42.9) 04/02/21 22:59 MCV 82 fl (79-97) 04/02/21 22:59 MCH 26 pg (28-32) L 04/02/21 22:59 MCHC 32 % (30-34) 04/02/21 22:59 RDW 19.4 % (13.2-15.2) H 04/02/21 22:59 Plt Count 344 K/mm3 (140-440) 04/02/21 22:59 Lymph % (Auto) 38.4 % (13.4-35.0) H 04/02/21 22:59 [place] % (Auto) 9.0 % (0.0-7.3) H 04/02/21 22:59 Eos % (Auto) 2.6 % (0.0-4.3) 04/02/21 22:59 Baso % (Auto) 1.5 % (0.0-1.8) 04/02/21 22:59 Lymph # (Auto) 3.6 K/mm3 (1.2-5.4) 04/02/21 22:59 [place] # (Auto) 0.8 K/mm3 (0.0-0.8) 04/02/21 22:59 Eos # (Auto) 0.2 K/mm3 (0.0-0.4) 04/02/21 22:59 Baso # (Auto) 0.1 K/mm3 (0.0-0.1) 04/02/21 22:59 Seg Neutrophils % 48.5 % (40.0-70.0) 04/02/21 22:59 Seg Neutrophils # 4.6 K/mm3 (1.8-7.7) 04/02/21 22:59 Sodium 136 mmol/L (137-145) L 04/02/21 22:59 Potassium 3.4 mmol/L (3.6-5.0) L 04/02/21 22:59 Chloride 101.1 mmol/L (98-107) 04/02/21 22:59 Carbon Dioxide 21 mmol/L (22-30) L 04/02/21 22:59 Anion Gap 17 mmol/L 04/02/21 22:59 BUN 8 mg/dL (7-17) 04/02/21 22:59 Creatinine 0.6 mg/dL (0.6-1.2) 04/02/21 22:59 Estimated GFR > 60 ml/min 04/02/21 22:59 BUN/Creatinine Ratio 13 % 04/02/21 22:59 Glucose 78 mg/dL (65-100) 04/02/21 22:59 Calcium 9.2 mg/dL (8.4-10.2) 04/02/21 22:59 Total Bilirubin 0.20 mg/dL (0.1-1.2) 04/02/21 22:59 AST 20 units/L (5-40) 07/28/21 22:59 ALT 20 units/L (7-56) 04/02/21 22:59 Alkaline Phosphatase 65 units/L (35-129) 04/02/21 22:59 Troponin T < 0.010 ng/mL (0.00-0.029) 04/02/21 22:59 Total Protein 8.2 g/dL (6.3-8.2) 04/02/21 22:59 Albumin 4.4 g/dL (3.9-5) 04/02/21 22:59 Albumin/Globulin Ratio 1.2 % 04/02/21 22:59 - Imaging and Cardiology Chest x-ray: report reviewed CT scan - abdomen: report reviewed Assessment and Plan VTE prophylaxis?: Chemical Plan of care discussed with patient/family: Yes - Patient Problems (1) Acute coronary syndrome Current Visit: Yes Status: Acute Plan to address problem: Admit the patient to the medical ICU. Aspirin 325 mg p.o. daily. Lipitor 40 mg p.o. daily. Nitroglycerin as needed. We do the serial cardiac enzyme. We also do echocardiogram and consult cardiology for further evaluation and treatment (2) SVT (supraventricular tachycardia) Current Visit: Yes Status: Acute Plan to address problem: Cardizem drip as per protocol.Aspirin 325 mg p.o. daily. Lipitor 40 mg p.o. daily. Nitroglycerin as needed. We do the serial cardiac enzyme. We also do echocardiogram and consult cardiology for further evaluation and treatment (3) Asthma Current Visit: Yes Status: Acute Plan to address problem: Oxygen by nasal cannula 3 L/min. DuoNeb by nebulizer every 4 hours. Albuterol via nebulizer every 4 hours as needed (4) Left ovarian cyst Current Visit: Yes Status: Acute Plan to address problem: Outpatient follow-up with [facility]. We will monitor the patient closely (5) DVT prophylaxis Current Visit: Yes Status: Acute Plan to address problem: Heparin 5000 units subcu every 8 hours for DVT prophylaxis. Protonix 40 mg p.o. daily for GI prophylaxis. Patient is a full code
[2021-04-03 05:14] LABS: Basophils # (Auto) 0.1 K/mm3 (0.0-0.1); Basophils % (Auto) 1.1 % (0.0-1.8); Eosinophils # (Auto) 0.3 K/mm3 (0.0-0.4); Eosinophils % (Auto) 2.9 % (0.0-4.3); Hematocrit 30.8 % (30.3-42.9); Hemoglobin 10.3 gm/dl (10.1-14.3); Lymphocytes # (Auto) 3.4 K/mm3 (1.2-5.4); Mean Corpuscular HGB Conc 33 % (30-34); Mean Corpuscular Volume 80 fl (79-97); Monocytes # (Auto) 0.7 K/mm3 (0.0-0.8); Monocytes % (Auto) 7.5 % (0.0-7.3); Platelet Count 336 K/mm3 (140-440); Red Blood Count 3.83 M/mm3 (3.65-5.03); Red Cell Distribution Width 19.8 % (13.2-15.2)
[2021-04-03 05:23] LABS: Blood Urea Nitrogen 9 mg/dL (7-17); Calcium 8.5 mg/dL (8.4-10.2); Hemolysis Index 1
[2021-04-03 05:25] LABS: BUN/Creatinine Ratio 13
[2021-04-03] MEDS: HEPARIN 5,000 UNIT/1 ML VIAL SUB-Q SCH ×2 (08:16→13:58)
[2021-04-03] MEDS ORDERED: IBUPROFEN 400 MG TAB PO PRN (10:00)
[2021-04-03] MEDS ORDERED: PANTOPRAZOLE 40 MG TAB PO SCH (10:00)
[2021-04-03 10:05] LABS: Chol/HDL Ratio 3.27 %
--- NOTE | 2021-04-03 12:01 | Consultation ---
History of Present Illness Consult date: 04/03/21 Requesting physician: EDU ARAGON Consult reason: tachycardia History of present illness: This patient is a 36-year-old female with a significant past medical history of asthma, SVT, anemia, PCOS. She is previously unknown to our practice. Patient presents to [facility] with complaint of palpitations and substernal chest pain x2 days, and left lower quadrant abdominal pain x3 days. Chest pain is described as 10 out of 10, sharp, radiating to both arms and neck. Cardiology is consulted for tachycardia. Review of telemetry shows sinus tach versus SVT rate 160. Tachycardia resolved after administration of Cardizem. Patient is currently in sinus rhythm 96 with no acute ischemic changes. Chest pain is resolved at time of interview. Patient also denies weakness, dizziness, shortness of breath, and/V/D, recent illness or known exposures. Of note patient was previously evaluated in the emergency room for SVT approximately 2 years ago where again she was diagnosed with SVT and converted with Cardizem. Patient was noncompliant with outpatient cardiology follow-up due to insurance issues. She has been having episodes of palpitations frequently over the past 2 years. Past History Past Medical History: anemia, other (See HPI) Medications and Allergies Allergies Allergy/AdvReac Type Severity Reaction Status Date / Time Penicillins Allergy Hives Verified 03/02/20 12:47 Home Medications Medication Instructions Recorded Confirmed Last Taken Type Ibuprofen [Motrin] 800 mg PO Q8HR PRN 04/03/21 04/03/21 Unknown History Lactulose 10 gm PO 04/03/21 Unknown History Sertraline [Zoloft] 04/03/21 Unknown History Active Meds: Active Medications Acetaminophen (Acetaminophen 325 Mg Tab) 650 mg PO Q6H PRN PRN Reason: Pain, Mild (1-3) Aspirin (Aspirin Ec 325 Mg Tab) 325 mg PO QDAY JUAN PABLO Atorvastatin Calcium (Atorvastatin 40 Mg Tab) 40 mg PO QHS JUAN PABLO Docusate Sodium (Docusate Sodium 100 Mg Cap) 100 mg PO BID PRN PRN Reason: Constipation Heparin Sodium (Porcine) (Heparin 5,000 Unit/1 Ml Vial) 5,000 unit SUB-Q Q8HR JUAN PABLO Last Admin: 04/03/21 08:16 Dose: Not Given Documented by: Diltiazem HCl (Cardizem/D5w 100mg/100ml) 100 mg in 100 mls @ 5 mls/hr IV TITR JUAN PABLO; Protocol Last Titration: 04/03/21 07:00 Dose: 0 mg/hr, 0 mls/hr Documented by: Sodium Chloride (Nacl 0.9% 1000 Ml) 1,000 mls @ 100 mls/hr IV DIRECT JUAN PABLO Ibuprofen (Ibuprofen 400 Mg Tab) 400 mg PO QID PRN PRN Reason: Pain, Mild (1-3) Lactulose (Lactulose 20 Gm/30 Ml Oral Liqd) 20 gm PO QDAY PRN PRN Reason: Constipation Morphine Sulfate (Morphine 2 Mg/1 Ml Inj) 2 mg IV Q5MIN PRN PRN Reason: Chest Pain Nitroglycerin (Nitroglycerin 0.4 Mg Tab Subl) 0.4 mg SL Q5M PRN PRN Reason: Chest Pain Pantoprazole Sodium (Pantoprazole 40 Mg Tab) 40 mg PO QDAY JUAN PABLO Last Admin: 04/03/21 09:57 Dose: 40 mg Documented by: Sodium Chloride (Sodium Chloride 0.9% 10 Ml Flush Syringe) 10 ml IV PRN PRN PRN Reason: LINE FLUSH Tramadol HCl (Tramadol 50 Mg Tab) 50 mg PO Q6H PRN PRN Reason: Pain, Moderate (4-6) Last Admin: 04/03/21 08:14 Dose: 50 mg Documented by: Review of Systems Constitutional: no weight loss, no weight gain, no fever, no chills, no sweats, no night sweats Ears, nose, mouth and throat: no ear pain, no nose pain, no nasal congestion, no nasal discharge Cardiovascular: chest pain, palpitations, no orthopnea, no rapid/irregular heart beat, no edema, no syncope, no lightheadedness, no shortness of breath, no dyspnea on exertion, no paroxysmal nocturnal dyspnea, no claudication, no high blood pressure Respiratory: no cough, no cough with sputum, no hemoptysis, no shortness of breath, no dyspnea on exertion Gastrointestinal: abdominal pain, no nausea, no vomiting, no diarrhea Genitourinary Female: pelvic pain, no flank pain Musculoskeletal: no neck stiffness, no neck pain, no shooting arm pain, no arm numbness/tingling, no low back pain, no shooting leg pain Integumentary: no rash, no pruritis, no redness, no sores, no wounds Neurological: no head injury, no paralysis, no weakness, no parathesias, no numbness, no tingling, no seizures, no syncope Psychiatric: no anxiety Endocrine: no cold intolerance, no heat intolerance Hematologic/Lymphatic: no easy bruising, no easy bleeding Allergic/Immunologic: no urticaria Physical Examination Last Vital Signs Temp 98.2 F 04/02/21 22:45 Pulse 81 04/03/21 10:30 Resp 16 04/03/21 10:30 BP 132/75 04/03/21 10:30 Pulse Ox 100 04/03/21 10:30 General appearance: no acute distress HEENT: Positive: PERRL, Normocephaly, Mucus Membranes Moist Neck: Positive: neck supple, trachea midline Cardiac: Positive: Reg Rate and Rhythm Lungs: Positive: Normal Exam, Normal Breath Sounds Neuro: Positive: Grossly Intact Abdomen: Positive: Unremarkable, Soft Skin: Negative: Rash, Wound Musculoskeletal: No Pain Extremities: Present: upper extr. pulses, lower extr. pulses, edema (Trace bilateral lower extremity edema) Results 04/03/21 04:54 04/03/21 04:54 Cardiac Enzymes 04/02/21 Range/Units 22:59 AST 20 (5-40) units/L Lipids 04/03/21 Range/Units 09:18 Triglycerides 72 (2-149) mg/dL Cholesterol 144 (50-199) mg/dL HDL Cholesterol 44 (40-59) mg/dL Cholesterol/HDL Ratio 3.27 % CBC 04/02/21 04/03/21 Range/Units 22:59 04:54 WBC 9.4 8.7 (4.5-11.0) K/mm3 RBC 4.25 3.83 (3.65-5.03) M/mm3 Hgb 11.0 10.3 (10.1-14.3) gm/dl Hct 34.7 30.8 (30.3-42.9) % Plt Count 344 336 (140-440) K/mm3 Lymph # (Auto) 3.6 3.4 (1.2-5.4) K/mm3 [place] # (Auto) 0.8 0.7 (0.0-0.8) K/mm3 Eos # (Auto) 0.2 0.3 (0.0-0.4) K/mm3 Baso # (Auto) 0.1 0.1 (0.0-0.1) K/mm3 Comprehensive Metabolic Panel 04/02/21 04/03/21 Range/Units 22:59 04:54 Sodium 136 L 135 L (137-145) mmol/L Potassium 3.4 L 4.0 (3.6-5.0) mmol/L Chloride 101.1 100.7 (98-107) mmol/L Carbon Dioxide 21 L 21 L (22-30) mmol/L BUN 8 9 (7-17) mg/dL Creatinine 0.6 0.7 (0.6-1.2) mg/dL Glucose 78 96 (65-100) mg/dL Calcium 9.2 8.5 (8.4-10.2) mg/dL AST 20 (5-40) units/L ALT 20 (7-56) units/L Alkaline Phosphatase 65 (35-129) units/L Total Protein 8.2 (6.3-8.2) g/dL Albumin 4.4 (3.9-5) g/dL - Imaging and Cardiology Echo: report reviewed EKG: report reviewed, image reviewed EKG interpretations - Telemetry EKG Rhythm: Sinus Rhythm - EKG Sinus rhythms and dysrhythmias: sinus tachycardia Ventricular dysrhythmias: sustained ventricular tac Assessment and Plan SVT versus SVT with chest discomfort * Chest pain is currently resolved. Twelve-lead shows ST versus SVT heart rate 160 with no acute ischemic changes. Review of telemetry shows sinus rhythm 96. Troponins are negative x3. AMI is ruled out * Rhythm converted after diltiazem administration. * Echocardiogram 04/03/2021: LVEF 55 to 60%. LV SF normal. Mild diastolic dysfu nction. RV SF is normal. Mild MR. RVSP is 22 mmHg. * Optimize rate control: Discontinue Cardizem drip, initiate metoprolol XL 50 mg p.o. daily DVT prophylaxis * Heparin SQ Patient is currently stable cardiac status. We will plan for outpatient cardiac stress testing and Holter monitor. Patient may discharge from cardiology standpoint. Patient should follow-up with Dr Hu, [facility] heart specialists in our [place] location on 04/21/2021 at 2:45 PM. #[id number] This patient was seen in conjunction with Dr Hu who agrees with this assessment and plan of care - Patient Problems (1) Abdominal pain Current Visit: Yes Status: Acute Qualifiers: Abdominal location: left lower quadrant Qualified Code(s): R10.32 - Left lower quadrant pain (2) Asthma Current Visit: Yes Status: Chronic (3) Chest pain Current Visit: Yes Status: Acute Qualifiers: Chest pain type: unspecified Qualified Code(s): R07.9 - Chest pain, unspecified (4) DVT prophylaxis Current Visit: Yes Status: Acute (5) SVT (supraventricular tachycardia) Current Visit: Yes Status: Acute
[2021-04-03] MEDS ORDERED: METOPROLOL SUCCINATE XL 50 MG TAB PO SCH (13:00)
--- NOTE | 2021-04-03 13:17 | Discharge Summary ---
Providers - Providers Date of Admission: 04/03/21 01:30 Date of discharge: 04/03/21 Attending physician: LANNY LITTLE MD 04/03/21 Consult to Cardiac Rehabilitation [CONS] Routine Reason For Exam: Phase I 04/03/21 02:00 Consult to Cardiology [CONS] Routine Consulting Provider: DAHIANA MOSCOSO Reason For Exam: svt Primary care physician: [employer]ER Hospitalization Condition: Fair Hospital course: HPI: This patient is a 36-year-old female with a significant past medical history of asthma, SVT, anemia, PCOS. She is previously unknown to our practice. Patient presents to [facility] with complaint of palpitations and substernal chest pain x2 days, and left lower quadrant abdominal pain x3 days. Chest pain is described as 10 out of 10, sharp, radiating to both arms and neck. Cardiology was consulted for tachycardia. Review of telemetry shows sinus tach versus SVT rate 160. Tachycardia resolved after administration of Cardizem. Patient is currently in sinus rhythm 96 with no acute ischemic changes. Chest pain is resolved at time of interview. Patient also denies weakness, dizziness, shortness of breath, and/V/D, recent illness or known exposures. Of note patient was previously evaluated in the emergency room for SVT approximately 2 years ago where again she was diagnosed with SVT and conve rted with Cardizem. Patient was noncompliant with outpatient cardiology follow- up due to insurance issues. She has been having episodes of palpitations frequently over the past 2 years. Hospital course Patient's chest discomfort was determined to be likely SVT. Work-up with twelve-lead EKG demonstrated sinus tachycardia versus SVT with ventricular rate of 160 and no ischemic changes. Troponins x3 were negative. Acute myocardial infarction was ruled out. After initiation of diltiazem drip, Rhythm was normal sinus rhythm and rate was controlled in the emergency department. Echo completed demonstrated left ventricular ejection fraction of 55 to 60%, mild diastolic dysfunction RVSP 22. Cardiology recommended starting Toprol-XL 50 mg daily and further work-up outpatient. Patient can follow-up with Dr. Fritz Platt at [facility] heart specialists at the [place] location. Disposition: TO HOME OR SELFCARE Final Discharge Diagnosis (Prints w/discharge instructions): Supraventricular tachycardia Core Measure Documentation - Palliative Care Palliative Care/ Comfort Measures: Not Applicable - Core Measures Any of the following diagnoses?: none Exam - Physical Exam Narrative exam: General appearance: no acute distress HEENT: Positive: PERRL, Normocephaly, Mucus Membranes Moist Neck: Positive: neck supple, trachea midline Cardiac: Positive: Reg Rate and Rhythm Lungs: Positive: Normal Exam, Normal Breath Sounds Neuro: Positive: Grossly Intact Abdomen: Positive: Unremarkable, Soft Skin: Negative: Rash, Wound Musculoskeletal: No Pain Extremities: Present: upper extr. pulses, lower extr. pulses, edema (Trace bilateral lower extremity edema) - Constitutional Vitals: Temp Pulse Resp BP Pulse Ox 98.2 F 81 16 132/75 100 04/02/21 22:45 04/03/21 10:30 04/03/21 10:30 04/03/21 10:30 04/03/21 10:30 Plan Activity: no restrictions Weight Bearing Status: Weight Bear as Tolerated Diet: low cholesterol Plan of Treatment: Zuleima Dawson. You were admitted for chest pain and a fast heart rate. You were started on IV medicine to help control your heart rate which normalized to normal sinus rhythm and rate controlled. Your symptoms subsided and the IV medicine was eventually discontinued. A clinical research management associate came to evaluate you and they determined that your chest pain was likely due to to a fast rhythm called supraventricular tachycardia. They recommended initiation of metoprolol XL 50 mg po daily and to follow-up with them outpatient. who saw you in the hospital will see you at [facility] heart specialists at the appointment time listed below. There information is below. Patient should follow-up with Dr Dang, [facility] heart specialists in our [place] location on 04/21/2021 at 2:45 PM. Address: [address] [place] [id number] Follow up with: MALACHI BRUNNER MD [Primary Care Provider] - 3-5 Days ANGEL DANG MD [Staff Physician] - 7 Days Prescriptions: Metoprolol Xl [Metoprolol SUCCINATE ER TAB] 50 mg PO QDAY 30 Days #30 tablet
[2021-04-03 14:11] VITALS: BP 110/58
[2021-04-04] MEDS ORDERED: ASPIRIN EC 325 MG TAB PO SCH (10:00)
--- NOTE | 2021-04-04 17:41 | Electrocardiograph Report ---
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
--- NOTE | 2021-04-04 17:43 | Electrocardiograph Report ---
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
== END 2021-04-03 14:10 | disposition home or self-care (01) | DRG 309 ==
LOC: ED 22:40 → CC1 04-03 01:30 → 4A 04-03 11:38 → IMCU 04-03 13:14
PROVIDERS: ADMIT Hospitalist; ATTEND Internal Medicine
DX: I47.1 Supraventricular tachycardia (principal); I24.9 Acute ischemic heart disease, unspecified; J45.909 Unspecified asthma, uncomplicated; N83.202 Unspecified ovarian cyst, left side; Z88.0 Allergy status to penicillin; Z79.899 Other long term (current) drug therapy
CPT/HCPCS: 36415; 71045; 74177; 80048; 80053; 80061; 84484; 85025; 93005; 93306; 96361; 96374; 96375; 99291; G0378; J1170; J1644; J2270; J2405; J7030; Q9967

== ENCOUNTER 2021-04-22 21:48 | Emergency (ER) | payer MEDICAID ==
[2021-04-22 23:24] VITALS: BP 144/95
[2021-04-23 00:25] LABS: Alanine Aminotransferase 14 units/L (7-56); Albumin 4.1 g/dL (3.9-5); Basophils # (Auto) 0.1 K/mm3 (0.0-0.1); Basophils % (Auto) 0.8 % (0.0-1.8); Blood Urea Nitrogen 9 mg/dL (7-17); Calcium 8.8 mg/dL (8.4-10.2); Eosinophils # (Auto) 0.1 K/mm3 (0.0-0.4); Eosinophils % (Auto) 1.9 % (0.0-4.3); Hematocrit 31.4 % (30.3-42.9); Hemoglobin 10.2 gm/dl (10.1-14.3); Hemolysis Index 2; Lymphocytes # (Auto) 2.4 K/mm3 (1.2-5.4); Lymphocytes % (Auto) 33.5 % (13.4-35.0); Mean Corpuscular HGB Conc 32 % (30-34); Mean Corpuscular Volume 82 fl (79-97); Monocytes # (Auto) 0.5 K/mm3 (0.0-0.8); Monocytes % (Auto) 6.9 % (0.0-7.3); Platelet Count 256 K/mm3 (140-440); Red Blood Count 3.86 M/mm3 (3.65-5.03); Red Cell Distribution Width 18.8 % (13.2-15.2)
[2021-04-23 00:44] LABS: BUN/Creatinine Ratio 13
[2021-04-23 07:01] LABS: Bilirubin,Urine NEG (Negative); Blood,Urine NEG (Negative); Color,Urine Yellow (Yellow); Mucus,Urine FEW /HPF; Protein,Urine <15 mg/dL mg/dL (Negative); Urobilinogen,Urine < 2.0 mg/dL (<2.0)
[2021-04-23] MEDS ORDERED: MORPHINE 4 MG/1 ML INJ IV ONE (07:40)
[2021-04-23] MEDS ORDERED: ONDANSETRON 4 MG/2 ML INJ IV ONE (07:40)
--- NOTE | 2021-04-23 07:47 | Emergency Department Report ---
ED General Adult HPI - General Chief complaint: Abdominal Pain Stated complaint: BAD ABD PAIN PRESSURE WHEN URINATE Time Seen by Provider: 04/23/21 07:25 Source: patient Mode of arrival: Ambulatory Limitations: No Limitations - History of Present Illness Initial comments: 36-year-old -Tongan female patient with history of SVT presents with complaints of lower abdominal pain x2 weeks. She also states she has had urinary frequency, pressure, and dysuria. Patient also admits to history of hysterectomy and small bowel obstruction. She states she does have 1 ovary remaining. She denies any vaginal discharge, dyspareunia, fever/chills/sweats, nausea/vomiting, diarrhea, or constipation. No melena/hematochezia per patient. She reports she has had chronic recurrent pain since her hysterectomy and has had several procedures to remove fluid from her abdomen, however patient is unsure of the condition in which she would build up fluid was called. She denies history of cirrhosis, liver disease, or alcohol abuse. - Related Data Home Medications Medication Instructions Recorded Confirmed Last Taken Sertraline [Zoloft] 04/03/21 Unknown Previous Rx's Medication Instructions Recorded Last Taken Type Metoprolol Xl [Metoprolol 50 mg PO QDAY 30 Days #30 tablet 04/03/21 Unknown Rx SUCCINATE ER TAB] Acetaminophen/Codeine [Tylenol 1 tab PO Q8H PRN #8 tab 04/23/21 Unknown Rx /Codeine # 3 tab] Doxycycline Monohydrate 100 mg PO BID 7 Days #14 capsule 04/23/21 Unknown Rx Naproxen [Naprosyn TAB] 500 mg PO BID PRN #20 tablet 04/23/21 Unknown Rx Allergies Allergy/AdvReac Type Severity Reaction Status Date / Time Penicillins Allergy Hives Verified 04/22/21 23:24 ED Review of Systems ROS: Stated complaint: BAD ABD PAIN PRESSURE WHEN URINATE Other details as noted in HPI Constitutional: denies: chills, diaphoresis, fever, malaise, weakness Respiratory: denies: cough, shortness of breath Cardiovascular: denies: chest pain Gastrointestinal: abdominal pain. denies: nausea, vomiting, diarrhea, constipation Genitourinary: urgency, dysuria, frequency. denies: abnormal menses, dyspareunia Skin: denies: lesions, change in color ED Past Medical Hx - Past Medical History Previous Medical History?: Yes Hx Asthma: Yes Additional medical history: SVT, anemia, left ovarian mass - Surgical History Past Surgical History?: Yes Additional Surgical History: right ovary removed. hysterectomy. bowel obstruction (2019) - Social History Smoking Status: Never Smoker Substance Use Type: None - Medications Home Medications: Home Medications Medication Instructions Recorded Confirmed Last Taken Type Metoprolol Xl [Metoprolol 50 mg PO QDAY 30 Days #30 tablet 04/03/21 Unknown Rx SUCCINATE ER TAB] Sertraline [Zoloft] 04/03/21 Unknown History Acetaminophen/Codeine [Tylenol 1 tab PO Q8H PRN #8 tab 04/23/21 Unknown Rx /Codeine # 3 tab] Doxycycline Monohydrate 100 mg PO BID 7 Days #14 capsule 04/23/21 Unknown Rx Naproxen [Naprosyn TAB] 500 mg PO BID PRN #20 tablet 04/23/21 Unknown Rx ED Physical Exam - General Limitations: No Limitations General appearance: alert, in no apparent distress, obese - Head Head exam: Present: atraumatic, normocephalic - Eye Eye exam: Present: normal appearance. Absent: scleral icterus - Neck Neck exam: Present: normal inspection - Respiratory Respiratory exam: Present: normal lung sounds bilaterally. Absent: respiratory distress - Cardiovascular Cardiovascular Exam: Present: regular rate, normal rhythm - GI/Abdominal GI/Abdominal exam: Present: distended (Mild), tenderness (Lower abdomen), normal bowel sounds - Back Exam Back exam: Present: full ROM. Absent: CVA tenderness (R), CVA tenderness (L) - Neurological Exam Neurological exam: Present: alert, oriented X3, normal gait - Psychiatric Psychiatric exam: Present: normal affect, normal mood - Skin Skin exam: Present: warm, dry, intact, normal color. Absent: rash, cyanosis, diaphoretic, erythema, pallor ED Course Vital Signs 04/22/21 04/23/21 04/23/21 23:20 08:31 09:51 Temperature 98.2 F Pulse Rate 102 H Respiratory 18 18 16 Rate Blood Pressure 144/95 [Left] O2 Sat by Pulse 100 Oximetry 04/23/21 09:55 Temperature 98.8 F Pulse Rate 77 Respiratory 16 Rate Blood Pressure [Left] O2 Sat by Pulse 100 Oximetry ED Medical Decision Making - Lab Data Result diagrams: 04/22/21 23:34 04/22/21 23:34 Lab Results 04/22/21 04/22/21 04/22/21 Range/Units 23:34 23:34 23:34 WBC 7.2 (4.5-11.0) K/mm3 RBC 3.86 (3.65-5.03) M/mm3 Hgb 10.2 (10.1-14.3) gm/dl Hct 31.4 (30.3-42.9) % MCV 82 (79-97) fl MCH 26 L (28-32) pg MCHC 32 (30-34) % RDW 18.8 H (13.2-15.2) % Plt Count 256 (140-440) K/mm3 Lymph % (Auto) 33.5 (13.4-35.0) % [place] % (Auto) 6.9 (0.0-7.3) % Eos % (Auto) 1.9 (0.0-4.3) % Baso % (Auto) 0.8 (0.0-1.8) % Lymph # (Auto) 2.4 (1.2-5.4) K/mm3 [place] # (Auto) 0.5 (0.0-0.8) K/mm3 Eos # (Auto) 0.1 (0.0-0.4) K/mm3 Baso # (Auto) 0.1 (0.0-0.1) K/mm3 Seg Neutrophils % 56.9 (40.0-70.0) % Seg Neutrophils # 4.1 (1.8-7.7) K/mm3 Sodium 141 (137-145) mmol/L Potassium 4.2 (3.6-5.0) mmol/L Chloride 106.5 (98-107) mmol/L Carbon Dioxide 26 (22-30) mmol/L Anion Gap 13 mmol/L BUN 9 (7-17) mg/dL Creatinine 0.7 (0.6-1.2) mg/dL Estimated GFR > 60 ml/min BUN/Creatinine Ratio 13 % Glucose 97 (65-100) mg/dL Calcium 8.8 (8.4-10.2) mg/dL Total Bilirubin 0.20 (0.1-1.2) mg/dL AST 15 (5-40) units/L ALT 14 (7-56) units/L Alkaline Phosphatase 69 (35-129) units/L Total Protein 7.3 (6.3-8.2) g/dL Albumin 4.1 (3.9-5) g/dL Albumin/Globulin Ratio 1.3 % Lipase 33 (13-60) units/L Urine Color (Yellow) Urine Turbidity (Clear) Urine pH (5.0-7.0) Ur Specific [place] (1.003-1.030) Urine Protein (Negative) mg/dL Urine Glucose (UA) (Negative) mg/dL Urine Ketones (Negative) mg/dL Urine Blood (Negative) Urine Nitrite (Negative) Urine Bilirubin (Negative) Urine Urobilinogen (<2.0) mg/dL Ur Leukocyte Esterase (Negative) Urine WBC (Auto) (0.0-6.0) /HPF Urine RBC (Auto) (0.0-6.0) /HPF U Epithel Cells (Auto) (0-13.0) /HPF Urine Mucus /HPF Urine HCG, Qual (Negative) 04/23/21 04/23/21 Range/Units 06:30 Unknown WBC (4.5-11.0) K/mm3 RBC (3.65-5.03) M/mm3 Hgb (10.1-14.3) gm/dl Hct (30.3-42.9) % MCV (79-97) fl MCH (28-32) pg MCHC (30-34) % RDW (13.2-15.2) % Plt Count (140-440) K/mm3 Lymph % (Auto) (13.4-35.0) % [place] % (Auto) (0.0-7.3) % Eos % (Auto) (0.0-4.3) % Baso % (Auto) (0.0-1.8) % Lymph # (Auto) (1.2-5.4) K/mm3 [place] # (Auto) (0.0-0.8) K/mm3 Eos # (Auto) (0.0-0.4) K/mm3 Baso # (Auto) (0.0-0.1) K/mm3 Seg Neutrophils % (40.0-70.0) % Seg Neutrophils # (1.8-7.7) K/mm3 Sodium (137-145) mmol/L Potassium (3.6-5.0) mmol/L Chloride (98-107) mmol/L Carbon Dioxide (22-30) mmol/L Anion Gap mmol/L BUN (7-17) mg/dL Creatinine (0.6-1.2) mg/dL Estimated GFR ml/min BUN/Creatinine Ratio % Glucose (65-100) mg/dL Calcium (8.4-10.2) mg/dL Total Bilirubin (0.1-1.2) mg/dL AST (5-40) units/L ALT (7-56) units/L Alkaline Phosphatase (35-129) units/L Total Protein (6.3-8.2) g/dL Albumin (3.9-5) g/dL Albumin/Globulin Ratio % Lipase (13-60) units/L Urine Color Yellow (Yellow) Urine Turbidity Clear (Clear) Urine pH 6.0 (5.0-7.0) Ur Specific [place] 1.018 (1.003-1.030) Urine Protein <15 mg/dl (Negative) mg/dL Urine Glucose (UA) Neg (Negative) mg/dL Urine Ketones Neg (Negative) mg/dL Urine Blood Neg (Negative) Urine Nitrite Neg (Negative) Urine Bilirubin Neg (Negative) Urine Urobilinogen < 2.0 (<2.0) mg/dL Ur Leukocyte Esterase Tr (Negative) Urine WBC (Auto) 7.0 H (0.0-6.0) /HPF Urine RBC (Auto) 2.0 (0.0-6.0) /HPF U Epithel Cells (Auto) 4.0 (0-13.0) /HPF Urine Mucus Few /HPF Urine HCG, Qual Negative (Negative) - Radiology Data Radiology results: report reviewed CT abdomen pelvis w con INDICATION / CLINICAL INFORMATION: lower abdominal pain OMNI 300 100 ML. TECHNIQUE: Axial CT images were obtained through the abdomen and pelvis after IV contrast. All CT scans at this location are performed using CT dose reduction for ALARA by means of automated exposure control. COMPARISON: 04/03/2021 FINDINGS: LOWER CHEST: No significant abnormality LIVER: Tiny probable cyst at the hepatic dome. GALLBLADDER/BILIARY TREE: No significant abnormality PANCREAS: No significant abnormality SPLEEN: No significant abnormality ADRENALS: No significant abnormality KIDNEYS / URETER: No significant abnormality URINARY BLADDER: Bladder is decompressed, limiting further evaluation. REPRODUCTIVE ORGANS: Postsurgical changes of hysterectomy. Slight enlargement in 2 left adnexal cystic lesions, both of which measure approximately 4.5 cm. STOMACH / BOWEL: No significant abnormality. LYMPH NODES: Unchanged enlarged lymph nodes in the left greater than right external iliac chains, largest in the left measuring 1.7 cm in short axis (series 2 at 153). VASCULATURE: No significant abnormality. OTHER: No free air, free fluid, or focal fluid collection is identified. SKELETAL SYSTEM: No acute osseous findings. IMPRESSION: 1. No acute abnormality of the abdomen or pelvis. 2. Unchanged 2 left adnexal cystic lesions. Consider follow-up with pelvic ultrasound. 3. Stable nonspecific enlarged pelvic lymph nodes. - Medical Decision Making 36-year-old -Tong[place] female patient with history of SVT presents with complaints of lower abdominal pain x2 weeks. She also states she has had urinary frequency, pressure, and dysuria. Patient also admits to history of hy sterectomy and small bowel obstruction. She states she does have 1 ovary remaining. She denies any vaginal discharge, dyspareunia, fever/chills/sweats, nausea/vomiting, diarrhea, or constipation. No melena/hematochezia per patient. She reports she has had chronic recurrent pain since her hysterectomy and has had several procedures to remove fluid from her abdomen, however patient is unsure of the condition in which she would build up fluid was called. She denies history of cirrhosis, liver disease, or alcohol abuse. UA shows 7 WBCs. No significant abnormalities noted on CBC, CMP, or lipase. Patient does have moderate tenderness of the lower abdominal region. Given history of bowel obstruction, CT abdomen was performed and is negative for any acute abnormalities. It does show an ovarian cyst which patient also admits to history of. Recommend follow-up with [facility] and PCP. Will treat UTI with doxycycline. Discussed results and presumptive diagnosis with patient. Also discussed signs and symptoms that should prompt immediate return to the emergency department in detail with patient who verbalizes understanding. She is well-appearing, her vitals are within normal limits, she is stable for discharge home. Critical care attestation.: If time is entered above; I have spent that time in minutes in the direct care of this critically ill patient, excluding procedure time. ED Disposition Clinical Impression: UTI (urinary tract infection), Abdominal pain Disposition: HOME / SELF CARE / HOMELESS Is pt being admited?: No Condition: Stable Instructions: Abdominal Pain, Adult, [id number], Urinary Tract Infection, Adult, Abdominal Pain (ED) Prescriptions: Doxycycline Monohydrate 100 mg PO BID 7 Days #14 capsule Naproxen [Naprosyn TAB] 500 mg PO BID PRN #20 tablet PRN Reason: Pain, Moderate (4-6) Acetaminophen/Codeine [Tylenol /Codeine # 3 tab] 1 tab PO Q8H PRN #8 tab PRN Reason: Pain , Severe (7-10) Referrals: [facility] [Provider Group] - 3-5 Days [facility] [Provider Group] - 3-5 Days [facility] [Provider Group] - 3-5 Days
[2021-04-23 08:43] LABS: HCG Qualitative,Urine Negative (Negative)
--- NOTE | 2021-04-23 09:12 | Cat Scan Report ---
CT abdomen pelvis w con INDICATION / CLINICAL INFORMATION: lower abdominal pain OMNI 300 100 ML. TECHNIQUE: Axial CT images were obtained through the abdomen and pelvis after IV contrast. All CT sc ans at this location are performed using CT dose reduction for ALARA by means of automated exposure c ontrol. COMPARISON: 04/03/2021 FINDINGS: LOWER CHEST: No significant abnormality LIVER: Tiny probable cyst at the hepatic dome. GALLBLADDER/BILIARY TREE: No significant abnormality PANCREAS: No significant abnormality SPLEEN: No significant abnormality ADRENALS: No significant abnormality KIDNEYS / URETER: No significant abnormality URINARY BLADDER: Bladder is decompressed, limiting further evaluation. REPRODUCTIVE ORGANS: Postsurgical changes of hysterectomy. Slight enlargement in 2 left adnexal cysti c lesions, both of which measure approximately 4.5 cm. STOMACH / BOWEL: No significant abnormality. LYMPH NODES: Unchanged enlarged lymph nodes in the left greater than right external iliac chains, lar gest in the left measuring 1.7 cm in short axis (series 2 at 153). VASCULATURE: No significant abnormality. OTHER: No free air, free fluid, or focal fluid collection is identified. SKELETAL SYSTEM: No acute osseous findings. IMPRESSION: 1. No acute abnormality of the abdomen or pelvis. 2. Unchanged 2 left adnexal cystic lesions. Consider follow-up with pelvic ultrasound. 3. Stable nonspecific enlarged pelvic lymph nodes. Signer Name: Isael Fernández MD Signed: 04/23/2021 9:08 AM Workstation Name: [id number]
[2021-04-23] MEDS ORDERED: KETOROLAC 30 MG/1 ML INJ IV ONE (09:40)
== END 2021-04-23 10:02 | disposition home or self-care (01) ==
LOC: ED 21:48
DX: N39.0 Urinary tract infection, site not specified (principal); R10.30 Lower abdominal pain, unspecified; J45.909 Unspecified asthma, uncomplicated; I47.1 Supraventricular tachycardia; D64.9 Anemia, unspecified; N83.202 Unspecified ovarian cyst, left side; Z98.890 Other specified postprocedural states; Z88.0 Allergy status to penicillin
CPT/HCPCS: 36415; 74177; 80053; 81001; 81025; 83690; 85025; 96374; 96375; 99284; J1885; J2270; J2405; Q9967

== ENCOUNTER 2021-07-21 22:26 | Emergency (ER) | payer MEDICAID ==
--- NOTE | 2021-07-21 22:33 | Emergency Department Report ---
ED Abdominal Pain HPI - General Chief Complaint: Abdominal Pain Stated Complaint: ABD PAIN Time Seen by Provider: 07/21/21 22:32 Source: patient Mode of arrival: Ambulatory Limitations: No Limitations - History of Present Illness Initial Comments: Patient presents with multiple complaints. She states that she is having pain in the left pelvis. She had been having this pain for about 2 weeks now. She was told at one facility that she had an ovarian cyst. They gave her medicine but it did not help. She is still having the same pain. This is sharp and stabbing pain. The pain does not radiate or migrate. It does seem to wax and wane. There is no flank pain associated with this. She has no dysuria or frequency. Patient also states that for the several days she has had a headache with chills and muscle aches. She has had congestion. She just does not feel well. She denies having any energy. She has had no sick contacts. She has had no hematemesis or coffee-ground emesis. There is no melenic stool. She has not been exposed to anyone with coronavirus. - Related Data Home Medications Medication Instructions Recorded Confirmed Last Taken Sertraline [Zoloft] 04/03/21 Unknown Previous Rx's Medication Instructions Recorded Last Taken Type Metoprolol Xl [Metoprolol 50 mg PO QDAY 30 Days #30 tablet 04/03/21 Unknown Rx SUCCINATE ER TAB] Ibuprofen [Motrin] 600 mg PO Q8H PRN #30 tablet 07/21/21 Unknown Rx Ondansetron [Zofran ODT TAB] 8 mg PO Q8HR PRN #20 tab.rapdis 07/21/21 Unknown Rx guaiFENesin ER [Mucinex ER] 600 mg PO Q12H #20 tablet.er 07/21/21 Unknown Rx Allergies Allergy/AdvReac Type Severity Reaction Status Date / Time Penicillins Allergy Hives Verified 04/22/21 23:24 ED Review of Systems ROS: Stated complaint: ABD PAIN Other details as noted in HPI Comment: All other systems reviewed and negative Constitutional: fever (Subjective) Eyes: denies: eye pain ENT: denies: throat pain Respiratory: see HPI Cardiovascular: denies: chest pain Endocrine: denies: unexplained weight loss Gastrointestinal: as per HPI Genitourinary: denies: dysuria Musculoskeletal: denies: back pain Skin: denies: rash Hematological/Lymphatic: denies: easy bruising ED Past Medical Hx - Past Medical History Previous Medical History?: Yes Hx Asthma: Yes Additional medical history: SVT, anemia, left ovarian mass - Surgical History Past Surgical History?: Yes Additional Surgical History: right ovary removed. hysterectomy. bowel obstruction (2019) - Family History Family history: no significant - Social History Smoking Status: Never Smoker Substance Use Type: None - Medications Home Medications: Home Medications Medication Instructions Recorded Confirmed Last Taken Type Metoprolol Xl [Metoprolol 50 mg PO QDAY 30 Days #30 tablet 04/03/21 Unknown Rx SUCCINATE ER TAB] Sertraline [Zoloft] 04/03/21 Unknown History Ibuprofen [Motrin] 600 mg PO Q8H PRN #30 tablet 07/21/21 Unknown Rx Ondansetron [Zofran ODT TAB] 8 mg PO Q8HR PRN #20 tab.rapdis 07/21/21 Unknown Rx guaiFENesin ER [Mucinex ER] 600 mg PO Q12H #20 tablet.er 07/21/21 Unknown Rx ED Physical Exam - General Limitations: No Limitations, Other (Pulse ox noted and normal) General appearance: alert, in no apparent distress - Head Head exam: Present: atraumatic, normocephalic - Eye Eye exam: Present: normal appearance, EOMI. Absent: scleral icterus - ENT ENT exam: Present: normal exam, mucous membranes dry, normal external ear exam - Neck Neck exam: Present: normal inspection. Absent: meningismus - Respiratory Respiratory exam: Present: normal lung sounds bilaterally. Absent: respiratory distress - Cardiovascular Cardiovascular Exam: Present: normal rhythm, tachycardia - GI/Abdominal GI/Abdominal exam: Present: soft, tenderness (Left pelvis). Absent: guarding, rebound - Extremities Exam Extremities exam: Present: normal capillary refill. Absent: pedal edema - Back Exam Back exam: Absent: CVA tenderness (R), CVA tenderness (L) - Neurological Exam Neurological exam: Present: alert, oriented X3, CN II-XII intact, normal gait. Absent: motor sensory deficit - Psychiatric Psychiatric exam: Present: normal affect, normal mood - Skin Skin exam: Present: warm, dry ED Course Vital Signs 07/21/21 22:29 Temperature 99.4 F Pulse Rate 124 H Respiratory 18 Rate Blood Pressure 134/93 [Right] O2 Sat by Pulse 100 Oximetry - Reevaluation(s) Reevaluation #1: 07/21/21 22:33 Labs ordered. Old records reviewed. Reevaluation #2: 07/21/21 23:41 Labs are pending ED Medical Decision Making - Medical Decision Making Patient presented with left pelvic pain of unclear etiology. She was told that this was an ovarian cyst. This certainly could be an ovarian cyst. She does not have true colicky type pain here. She does not have any tenderness. I do not believe this represents torsion. Clinically, the patient does not have urinary symptoms or evidence of urinary tract infection. There is no CVA tenderness to suggest pyelonephritis. test she states was negative previously which would exclude any type of ectopic. She also reports having a constellation of symptoms that would be consistent with a viral URI. There are no adventitial breath sounds suggestive of pneumonia. She has had no Covid exposure. Critical Care Time: No Critical care attestation.: If time is entered above; I have spent that time in minutes in the direct care of this critically ill patient, excluding procedure time. ED Disposition Clinical Impression: LLQ pain, Viral syndrome URI (upper respiratory infection) Qualifiers: URI type: unspecified viral URI Qualified Code(s): J06.9 - Acute upper respiratory infection, unspecified Disposition: 01 HOME / SELF CARE / HOMELESS Is pt being admited?: No Condition: Stable Instructions: Abdominal Pain, Adult, Cough, Adult, [id number], Upper Respiratory Infection, Adult, [id number], Pain Without a Known Cause, Abdominal Pain (ED) Additional Instructions: Alternate Tylenol and ibuprofen for fever. Push fluids. Return for problems. Follow-up with your regular doctor for recheck and further management. Follow- up with your change consultant. If you do not have a family doctor or change consultant, follow-up with the referral physicians. Prescriptions: Ibuprofen [Motrin] 600 mg PO Q8H PRN #30 tablet PRN Reason: Pain guaiFENesin ER [Mucinex ER] 600 mg PO Q12H #20 tablet.er Ondansetron [Zofran ODT TAB] 8 mg PO Q8HR PRN #20 tab.rapdis PRN Reason: Nausea Referrals: PRIMARY MD MYESHA [Referring] - 3-5 Days MICHAEL STEELE MD [Staff Physician] - 3-5 Days JEN EAST MD [Staff Physician] - 3-5 Days
[2021-07-22 02:47] LABS: HCG Qualitative,Urine Negative (Negative)
[2021-07-22 02:49] LABS: Bacteria,Urine 1+ /HPF (Negative); Bilirubin,Urine NEG (Negative); Blood,Urine SM (Negative); Color,Urine Yellow (Yellow); Mucus,Urine 3+ /HPF
[2021-07-22 03:32] VITALS: BP 133/89
== END 2021-07-22 03:31 | disposition home or self-care (01) ==
LOC: ED 22:26
DX: B34.9 Viral infection, unspecified (principal); R10.32 Left lower quadrant pain; J06.9 Acute upper respiratory infection, unspecified; J45.909 Unspecified asthma, uncomplicated; Z88.0 Allergy status to penicillin; Z79.899 Other long term (current) drug therapy
CPT/HCPCS: 81001; 81025; 99283

== ENCOUNTER 2021-09-11 03:12 | Emergency (ER) | payer MEDICAID ==
[2021-09-11 03:25] VITALS: BP 130/78
== END 2021-09-11 08:13 | disposition left against medical advice (07) ==
LOC: ED 03:12
DX: R11.2 Nausea with vomiting, unspecified (principal); R50.9 Fever, unspecified; Z53.21 Procedure and treatment not carried out due to patient leaving prior to being seen by health care provider

== ENCOUNTER 2021-12-10 15:22 | Emergency (ER) | payer MEDICAID ==
--- NOTE | 2021-12-10 16:09 | Event Note ---
ED Screening Note ED Screening Note: Patient comes to the emergency room after getting dizzy today falling and hurting her right ankle. Patient has a history of SVT. She does endorse palpitations and chest pain. She is off her medications for her SVT because she is currently uninsured. Patient has had a hysterectomy which was followed by a small bowel obstruction No home medications Denies alcohol drugs or tobacco This initial assessment/diagnostic orders/clinical plan/treatment(s) is/are subject to change based on patients health status, clinical progression and re- assessment by fellow clinical providers in the ED. Further treatment and workup at subsequent clinical providers discretion. Patient/guardian urged not to elope from the ED as their condition may be serious if not clinically assessed and managed. Initial orders include: ekg labs culture manager
[2021-12-10] MEDS ORDERED: MECLIZINE 25 MG TAB PO ONE (18:40)
[2021-12-10 19:01] LABS: Basophils # (Auto) 0.1 K/mm3 (0.0-0.1); Eosinophils # (Auto) 0.1 K/mm3 (0.0-0.4); Eosinophils % (Auto) 1.7 % (0.0-4.3); Hematocrit 38.2 % (30.3-42.9); Hemoglobin 11.9 gm/dl (10.1-14.3); Lymphocytes # (Auto) 2.3 K/mm3 (1.2-5.4); Lymphocytes % (Auto) 34.3 % (13.4-35.0); Mean Corpuscular HGB Conc 31 % (30-34); Mean Corpuscular Volume 85 fl (79-97); Monocytes # (Auto) 0.4 K/mm3 (0.0-0.8); Monocytes % (Auto) 5.5 % (0.0-7.3); Platelet Count 226 K/mm3 (140-440); Red Blood Count 4.52 M/mm3 (3.65-5.03); Red Cell Distribution Width 19.4 % (13.2-15.2)
[2021-12-10 19:26] LABS: Alanine Aminotransferase 19 units/L (7-56); Albumin 4.3 g/dL (3.9-5); Blood Urea Nitrogen 7 mg/dL (7-17); Calcium 9.1 mg/dL (8.4-10.2); Hemolysis Index 13
--- NOTE | 2021-12-10 19:30 | Emergency Department Report ---
ED Dizziness HPI - General Chief Complaint: Dizziness Stated Complaint: FALL/ABDOMINAL PAIN Source: patient Mode of arrival: Ambulatory Limitations: No Limitations - History of Present Illness Initial Comments: Patient reports feeling lightheaded on some dizziness on and off for the last 2 weeks. Patient claims that today she was walking downstairs when she slid down the stairs and hit the back of her head and twisted her right ankle. Patient claims that she felt a little bit dizzy prior to that episode. Patient otherwise states history of SVT and hypertension but not on meds at this time. Patient also has a history of hysterectomy. MD Complaint: dizziness -: Gradual, week(s) Timing: gradual onset Description: sense of movement, lightheadedness History of Same: Yes History of Trauma: Yes Severity: mild Improves With: remaining still Worsens With: movement Associated Symptoms: denies other symptoms - Related Data Home Medications Medication Instructions Recorded Confirmed Last Taken Sertraline [Zoloft] 04/03/21 Unknown Previous Rx's Medication Instructions Recorded Last Taken Type Metoprolol Xl [Metoprolol 50 mg PO QDAY 30 Days #30 tablet 04/03/21 Unknown Rx SUCCINATE ER TAB] Ibuprofen [Motrin] 600 mg PO Q8H PRN #30 tablet 07/21/21 Unknown Rx Ondansetron [Zofran ODT TAB] 8 mg PO Q8HR PRN #20 tab.rapdis 07/21/21 Unknown Rx guaiFENesin ER [Mucinex ER] 600 mg PO Q12H #20 tablet.er 07/21/21 Unknown Rx Allergies Allergy/AdvReac Type Severity Reaction Status Date / Time Penicillins Allergy Hives Verified 04/22/21 23:24 ED Review of Systems ROS: Stated complaint: FALL/ABDOMINAL PAIN Other details as noted in HPI Constitutional: denies: chills, fever Eyes: denies: eye pain, eye discharge, vision change ENT: denies: ear pain, throat pain Respiratory: denies: cough, shortness of breath, wheezing Cardiovascular: denies: chest pain, palpitations Endocrine: no symptoms reported Gastrointestinal: denies: abdominal pain, nausea, diarrhea Genitourinary: denies: urgency, dysuria, discharge Musculoskeletal: denies: back pain, joint swelling, arthralgia Skin: denies: rash, lesions Neurological: denies: headache (Patient claims she is not dizzy at this time.), weakness, paresthesias Psychiatric: denies: anxiety, depression Hematological/Lymphatic: denies: easy bleeding, easy bruising ED Past Medical Hx - Past Medical History Previous Medical History?: Yes Hx Hypertension: Yes Hx Asthma: Yes Additional medical history: SVT, anemia, left ovarian mass - Surgical History Past Surgical History?: Yes Additional Surgical History: right ovary removed. hysterectomy. bowel obstruction (2019) - Family History Family history: diabetes, hypertension - Social History Smoking Status: Never Smoker Substance Use Type: None - Medications Home Medications: Home Medications Medication Instructions Recorded Confirmed Last Taken Type Metoprolol Xl [Metoprolol 50 mg PO QDAY 30 Days #30 tablet 04/03/21 Unknown Rx SUCCINATE ER TAB] Sertraline [Zoloft] 04/03/21 Unknown History Ibuprofen [Motrin] 600 mg PO Q8H PRN #30 tablet 07/21/21 Unknown Rx Ondansetron [Zofran ODT TAB] 8 mg PO Q8HR PRN #20 tab.rapdis 07/21/21 Unknown Rx guaiFENesin ER [Mucinex ER] 600 mg PO Q12H #20 tablet.er 07/21/21 Unknown Rx ED Physical Exam - General Limitations: No Limitations General appearance: alert, in no apparent distress - Head Head exam: Present: atraumatic, normocephalic - Eye Eye exam: Present: normal appearance - ENT ENT exam: Present: mucous membranes moist - Neck Neck exam: Present: normal inspection - Respiratory Respiratory exam: Present: normal lung sounds bilaterally. Absent: respiratory distress - Cardiovascular Cardiovascular Exam: Present: regular rate, normal rhythm. Absent: systolic murmur, diastolic murmur, rubs, gallop - GI/Abdominal GI/Abdominal exam: Present: soft, normal bowel sounds - Extremities Exam Extremities exam: Present: normal inspection - Back Exam Back exam: Present: normal inspection - Neurological Exam Neurological exam: Present: alert, oriented X3 - Psychiatric Psychiatric exam: Present: normal affect, normal mood - Skin Skin exam: Present: warm, dry, intact, normal color. Absent: rash ED Course Vital Signs 12/10/21 12/10/21 12/10/21 16:07 19:25 19:47 Temperature 98.3 F 98.4 F Pulse Rate 96 H 88 Respiratory 18 18 Rate Blood Pressure 140/81 O2 Sat by Pulse 99 99 98 Oximetry ED Medical Decision Making - Lab Data Result diagrams: 12/10/21 18:40 12/10/21 18:40 - EKG Data -: EKG Interpreted by Me EKG shows normal: sinus rhythm Rate: normal - EKG Data Interpretation: nonspecific ST-T wave [place], [facility] Critical care attestation.: If time is entered above; I have spent that time in minutes in the direct care of this critically ill patient, excluding procedure time. ED Disposition Condition: Stable
[2021-12-10 19:33] LABS: BUN/Creatinine Ratio 10
--- NOTE | 2021-12-10 20:13 | Cat Scan Report ---
CT HEAD WITHOUT CONTRAST INDICATION / CLINICAL INFORMATION: DIZZINESS, HTN. TECHNIQUE: All CT scans at this location are performed using CT dose reduction for ALARA by means of automated e xposure control. COMPARISON: None available. FINDINGS: Limitations: Patient motion artifact degrades image quality and is a limiting factor on this examinat ion. HEMORRHAGE: No evidence of intracranial hemorrhage or extra-axial fluid collection. EXTRA-AXIAL SPACES: Cortical sulci, sylvian fissures and basilar cisterns have an unremarkable appear ance. VENTRICULAR SYSTEM: The third and lateral ventricles are of normal size and configuration. CEREBRAL PARENCHYMA: No areas of abnormal brain parenchymal attenuation are identified. There is no i ndication of recent infarction. MIDLINE SHIFT OR HERNIATION: There is no mass effect. CEREBELLUM / BRAINSTEM: Brainstem and cerebellum have an unremarkable appearance. MIDLINE STRUCTURES:No abnormalities of the pituitary gland or pineal region are identified. INTRACRANIAL VESSELS:No abnormalities are identified on this noncontrast head CT. ORBITS: visualized portions of the orbits have an unremarkable appearance. SOFT TISSUES of HEAD: No significant abnormality. CALVARIUM: Evaluation of bone windows reveals no abnormalities. PARANASAL SINUSES / MASTOID AIR CELLS: Visualized portions of the paranasal sinuses are free from inf lammatory mucosal disease. Frontal and sphenoid sinuses did not develop in this individual. Mastoid a ir cells are normally pneumatized. IMPRESSION: 1. No acute intracranial abnormality. Signer Name: Steven Serra MD Signed: 12/10/2021 8:09 PM Workstation Name: [id number]
--- NOTE | 2021-12-10 20:25 | XRay Report ---
Right ankle, 3 views HISTORY: Pain COMPARISON: None FINDINGS: No acute fracture or malalignment. Ankle mortise is symmetric. Marginal osteophytes of the anterior t ibial plafond and dorsal talar head, which may predispose to anterior ankle impingement. Os trigonum. 4.4 cm mixed lytic and sclerotic lesion with sharp lobular contour and eccentric location within the distal lateral tibia, compatible with a benign nonossifying fibroma. There is diffuse soft tissue sw elling of the ankle. IMPRESSION: 1. No acute findings. 2. Chronic and incidental findings as above. Signer Name: Isael Fernández MD Signed: 12/10/2021 8:20 PM Workstation Name: [id number]
[2021-12-10 21:23] VITALS: BP 132/76
--- NOTE | 2021-12-11 10:39 | Electrocardiograph Report ---
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
== END 2021-12-10 21:24 | disposition home or self-care (01) ==
LOC: ED 15:22
DX: R42 Dizziness and giddiness (principal); Z88.0 Allergy status to penicillin; I10 Essential (primary) hypertension; J45.909 Unspecified asthma, uncomplicated
CPT/HCPCS: 36415; 70450; 80053; 83735; 84484; 85025; 93005; 99284

== ENCOUNTER 2022-01-24 00:41 | Emergency (ER) | payer MEDICAID ==
[2022-01-24] MEDS ORDERED: KETOROLAC 30 MG/1 ML INJ IV ONE (01:34)
--- NOTE | 2022-01-24 02:00 | XRay Report ---
CHEST 1 VIEW 01/24/2022 1:39 AM INDICATION / CLINICAL INFORMATION: Dyspnea. COMPARISON: One view of the chest from 04/02/2021. FINDINGS: SUPPORT DEVICES: None. HEART / MEDIASTINUM: No significant abnormality. LUNGS / PLEURA: No significant pulmonary abnormality. No significant pleural effusion. No pneumothora x. ADDITIONAL FINDINGS: No significant additional findings. IMPRESSION: 1. No acute abnormality of the chest. Signer Name: Rj Lezama MD Signed: 01/24/2022 1:55 AM Workstation Name: [id number]
[2022-01-24 02:12] LABS: Basophils # (Auto) 0.1 K/mm3 (0.0-0.1); Basophils % (Auto) 1.3 % (0.0-1.8); Eosinophils # (Auto) 0.2 K/mm3 (0.0-0.4); Eosinophils % (Auto) 2.9 % (0.0-4.3); Hematocrit 38.2 % (30.3-42.9); Hemoglobin 12.1 gm/dl (10.1-14.3); Lymphocytes # (Auto) 1.9 K/mm3 (1.2-5.4); Lymphocytes % (Auto) 24.9 % (13.4-35.0); Mean Corpuscular HGB Conc 32 % (30-34); Mean Corpuscular Volume 85 fl (79-97); Monocytes # (Auto) 0.6 K/mm3 (0.0-0.8); Monocytes % (Auto) 7.9 % (0.0-7.3); Platelet Count 260 K/mm3 (140-440); Red Blood Count 4.51 M/mm3 (3.65-5.03); Red Cell Distribution Width 18.9 % (13.2-15.2)
[2022-01-24 02:27] LABS: Alanine Aminotransferase 19 units/L (7-56); Albumin 4.1 g/dL (3.9-5); BUN/Creatinine Ratio 11; Blood Urea Nitrogen 9 mg/dL (7-17); Hemolysis Index 0
[2022-01-24] MEDS ORDERED: cefTRIAXone/NS 1 GM/50 ML 1 GM/50 ML BAG IV ONE (03:35)
--- NOTE | 2022-01-24 03:38 | Emergency Department Report ---
ED Shortness of Breath HPI - General Chief Complaint: Dyspnea/Respdistress Stated Complaint: FLU LIKE SYMPTOMS/COVID Time Seen by Provider: 01/24/22 01:22 Source: patient Mode of arrival: Ambulatory Limitations: No Limitations - History of Present Illness Initial Comments: For 1 week, cough, bodyaches and sore throat. MD Complaint: shortness of breath -: Gradual, days(s) Improves With: nothing Worsens With: nothing Context: recent URI Associated Symptoms: fever, cough - Related Data Home Medications Medication Instructions Recorded Confirmed Last Taken Sertraline [Zoloft] 04/03/21 Unknown Previous Rx's Medication Instructions Recorded Last Taken Type Metoprolol Xl [Metoprolol 50 mg PO QDAY 30 Days #30 tablet 04/03/21 Unknown Rx SUCCINATE ER TAB] Ibuprofen [Motrin] 600 mg PO Q8H PRN #30 tablet 07/21/21 Unknown Rx Ondansetron [Zofran ODT TAB] 8 mg PO Q8HR PRN #20 tab.rapdis 07/21/21 Unknown Rx guaiFENesin ER [Mucinex ER] 600 mg PO Q12H #20 tablet.er 07/21/21 Unknown Rx Meclizine [Antivert] 12.5 mg PO BID PRN #10 12/10/21 Unknown Rx Allergies Allergy/AdvReac Type Severity Reaction Status Date / Time Penicillins Allergy Hives Verified 04/22/21 23:24 ED Review of Systems ROS: Stated complaint: FLU LIKE SYMPTOMS/COVID Other details as noted in HPI Constitutional: denies: chills, fever Eyes: denies: eye pain, eye discharge, vision change ENT: denies: ear pain, throat pain Respiratory: denies: cough, shortness of breath, wheezing Cardiovascular: denies: chest pain, palpitations Endocrine: no symptoms reported Gastrointestinal: denies: abdominal pain, nausea, diarrhea Genitourinary: denies: urgency, dysuria, discharge Musculoskeletal: denies: back pain, joint swelling, arthralgia Skin: denies: rash, lesions Neurological: denies: headache, weakness, paresthesias Psychiatric: denies: anxiety, depression Hematological/Lymphatic: denies: easy bleeding, easy bruising ED Past Medical Hx - Past Medical History Previous Medical History?: Yes Hx Hypertension: Yes Hx Asthma: Yes Additional medical history: SVT, anemia, left ovarian mass - Surgical History Past Surgical History?: Yes Additional Surgical History: right ovary removed. hysterectomy. bowel obstruction (2019) - Social History Smoking Status: Never Smoker Substance Use Type: None - Medications Home Medications: Home Medications Medication Instructions Recorded Confirmed Last Taken Type Metoprolol Xl [Metoprolol 50 mg PO QDAY 30 Days #30 tablet 04/03/21 Unknown Rx SUCCINATE ER TAB] Sertraline [Zoloft] 04/03/21 Unknown History Ibuprofen [Motrin] 600 mg PO Q8H PRN #30 tablet 07/21/21 Unknown Rx Ondansetron [Zofran ODT TAB] 8 mg PO Q8HR PRN #20 tab.rapdis 07/21/21 Unknown Rx guaiFENesin ER [Mucinex ER] 600 mg PO Q12H #20 tablet.er 07/21/21 Unknown Rx Meclizine [Antivert] 12.5 mg PO BID PRN #10 12/10/21 Unknown Rx ED Physical Exam - General Limitations: No Limitations General appearance: alert, in no apparent distress - Head Head exam: Present: atraumatic, normocephalic - Eye Eye exam: Present: normal appearance - ENT ENT exam: Present: mucous membranes moist - Neck Neck exam: Present: normal inspection - Respiratory Respiratory exam: Present: normal lung sounds bilaterally. Absent: respiratory distress - Cardiovascular Cardiovascular Exam: Present: regular rate, normal rhythm. Absent: systolic murmur, diastolic murmur, rubs, gallop - GI/Abdominal GI/Abdominal exam: Present: soft, normal bowel sounds - Extremities Exam Extremities exam: Present: normal inspection - Back Exam Back exam: Present: normal inspection - Neurological Exam Neurological exam: Present: alert, oriented X3 - Psychiatric Psychiatric exam: Present: normal affect, normal mood - Skin Skin exam: Present: warm, dry, intact, normal color. Absent: rash ED Course Vital Signs 01/24/22 01/24/22 01/24/22 00:57 01:45 02:01 Temperature 100.2 F H Pulse Rate 121 H 109 H 108 H Respiratory 18 18 19 Rate Blood Pressure 125/81 130/78 123/77 O2 Sat by Pulse 100 100 100 Oximetry 01/24/22 02:44 Temperature Pulse Rate Respiratory 18 Rate Blood Pressure O2 Sat by Pulse Oximetry ED Medical Decision Making - Lab Data Result diagrams: 01/24/22 01:51 01/24/22 01:51 - EKG Data -: EKG Interpreted by Me EKG shows normal: sinus rhythm Rate: tachycardia - Radiology Data Radiology results: report reviewed, image reviewed Critical care attestation.: If time is entered above; I have spent that time in minutes in the direct care of this critically ill patient, excluding procedure time. ED Disposition Clinical Impression: Fever, URI (upper respiratory infection) Disposition: 01 HOME / SELF CARE / HOMELESS Is pt being admited?: No Does the pt Need Aspirin: No Condition: Stable Referrals: PRIMARY CARE, [Primary Care Provider] - 3-5 Days
[2022-01-24 04:21] VITALS: BP 124/77
--- NOTE | 2022-01-25 18:12 | Electrocardiograph Report ---
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
== END 2022-01-24 04:20 | disposition home or self-care (01) ==
LOC: ED 00:41
DX: R50.9 Fever, unspecified (principal); J06.9 Acute upper respiratory infection, unspecified; Z88.0 Allergy status to penicillin; I10 Essential (primary) hypertension; J45.909 Unspecified asthma, uncomplicated
CPT/HCPCS: 36415; 71045; 80053; 84484; 85025; 93005; 96365; 96375; 99284; J0696; J1885